=== PATIENT | male | born 1930 | race Caucasian/White ===

== ENCOUNTER 2016-08-30 | Outpatient (CLI) | payer MEDICARE | END 2016-08-30 04:00 | disposition EMS.NT ==

== ENCOUNTER 2016-10-28 09:51 | Outpatient (CLI) | payer MEDICARE | END 2016-10-28 09:52 | disposition home or self-care (01) | DX: G47.33 Obstructive sleep apnea (adult) (pediatric) (principal); G47.31 Primary central sleep apnea | CPT/HCPCS: 99213; G0463 ==

== ENCOUNTER 2016-12-17 13:18 | Outpatient (CLI) | payer MEDICARE | END 2016-12-17 13:19 | disposition home or self-care (01) | DX: G47.33 Obstructive sleep apnea (adult) (pediatric) (principal); G47.31 Primary central sleep apnea | CPT/HCPCS: 99213; G0463 ==

== ENCOUNTER 2017-08-17 10:01 | Emergency (ER) | payer MEDICARE ==
--- NOTE | 2017-08-17 13:20 | XRAY Report ---
EXAM: LEFT HAND RADIOGRAPHY EXAM DATE: 08/17/2017 12:36 PM. CLINICAL HISTORY: Swelling after a fall COMPARISON: None. TECHNIQUE: 3 views. FINDINGS: Bones: There is a 2 mm corticated ossicle adjacent to the PIP joint of the small finger. There is a t iny ossicle adjacent to the DIP joint of the long finger. No acute fractures are evident. Joints: Normal joint alignment. There are small osteophytes at the base of the thumb and the MCP join t of the thumb. Soft Tissues: Dorsal soft tissue swelling is present. Vascular calcifications are present. IMPRESSION: 1. Dorsal soft tissue swelling is present. 2. No acute fractures are appreciated. [facility] Referring Provider Line: [phone] SITE ID: [id number]
--- NOTE | 2017-08-17 13:22 | XRAY Report ---
EXAM: LEFT FOREARM RADIOGRAPHY EXAM DATE: 08/17/2017 12:36 PM. CLINICAL HISTORY: Pain and swelling after a fall COMPARISON: None. TECHNIQUE: 2 views. FINDINGS: Bones: Normal. No fractures or bone lesions. Joints: Normal. No effusions or subluxations in the visualized wrist or elbow joints. Soft Tissues: Normal. No soft tissue swelling. IMPRESSION: Negative left forearm. [facility] Referring Provider Line: [phone] SITE ID: [id number]
--- NOTE | 2017-08-17 13:55 | ED Physician Documentation ---
History of Present Illness - Stated complaint Stated Complaint: GLF/2 WKS HAND SWELLING - Chief complaint Chief Complaint: Ext Problem - Additonal information Additional information: hx from pt 86 male hx stroke on pradaxa fall freq fell two weeks ago onto L side no head or neck injury bruising to L FA and swelling from elbow down, also bruising to L latera thigh no sig pain thigh healing well but arm seems to be more swollen and discolored Review of Systems Constitutional: denies: Fever Cardiac: denies: Chest pain / pressure Respiratory: denies: Dyspnea Musculoskeletal: reports: Extremity swelling Endocrine: reports: Easy bruising / bleeding PD PAST MEDICAL HISTORY - Past Medical History Cardiovascular: Congestive heart failure, Hypertension, Coronary artery disease , Atrial fibrillation Respiratory: Shortness of breath Neuro: None, CVA, TIA Endocrine/Autoimmune: None GI: Ulcers, Pancreatitis : None HEENT: None Psych: None Musculoskeletal: None Derm: None - Past Surgical History Past Surgical History: Yes General: Cholecystectomy, Hiatal hernia repair Cardiovascular: Coronary stent, Pacemaker - Present Medications Home Medications: Ambulatory Orders Medication Instructions Recorded Confirmed Fluticasone Propionate [Flonase 1 spray SINDY QPM 01/14/15 08/17/17 Allergy Relief] Furosemide 20 mg PO DAILY 01/14/15 08/17/17 Lisinopril 20 mg PO DAILY 01/14/15 08/17/17 Potassium Chloride [K-Dur] 20 meq PO BIDWM 01/14/15 08/17/17 Sertraline [Zoloft] 50 mg PO DAILY 01/14/15 08/17/17 amLODIPine [Norvasc] 10 mg PO DAILY 01/14/15 08/17/17 Finasteride 5 mg PO DAILY 06/25/15 08/17/17 Oxybutynin [Ditropan] 5 mg PO 1200 12/26/15 08/17/17 Tamsulosin HCl [Flomax] 0.4 mg PO DAILY 12/26/15 08/17/17 Clopidogrel Bisulfate [Plavix] 75 mg PO DAILY 08/07/16 08/17/17 Dabigatran Etexilate Mesylate 150 mg PO DAILY 08/07/16 08/17/17 [Pradaxa] Nortriptyline [Pamelor] 10 mg PO DAILY 08/17/17 08/17/17 Polyethylene Glycol 3350 [Miralax] 1 packet PO DAILY 08/17/17 08/17/17 - Allergies Allergies/Adverse Reactions: Allergies Allergy/AdvReac Type Severity Reaction Status Date / Time Dspfiaw-Lps-Qtt Reductase AdvReac Dizziness Verified 08/17/17 10:14 Inhibitor - Social History Does the pt smoke?: No Smoking Status: Never smoker Does the pt drink ETOH?: Yes ETOH Use: Wine Does the pt have substance abuse?: No - Immunizations Immunizations are current?: Yes Immunizations: TDAP current <10years - POLST Patient has POLST: Yes PD ED PE NORMAL - Vitals Vital signs reviewed: Yes - HEENT HEENT: Atraumatic - Neck Neck: No bony TTP - Cardiac Cardiac: RRR - Respiratory Respiratory: No respiratory distress, Clear bilaterally - Extremities Extremities: Other (LUE edema and aged bruising to L UE from albow to hand, no focal bony TTP able to range elbow and wrist, strong radial and ulnar pulses, brisk cap refill) - Neuro Neuro: Alert and oriented X 3, No motor deficit, No sensory deficit Results - Vitals Vitals: Vital Signs - 24 hr 08/17/17 08/17/17 10:08 10:58 Temperature 36.3 C L 36.4 C L Heart Rate 60 57 L Respiratory 8 L 20 Rate Blood Pressure 153/80 H 155/95 H O2 Saturation 98 98 Oxygen O2 Source [] Room air O2 Source [] Room air O2 Source Room air - Rads (name of study) L FA and hand Radiology: See rad report (STS no fx) Departure - Departure Disposition: 01 Home, Self Care Clinical Impression: Hematoma Condition: Good Instructions: ED Hematoma Follow-Up: Arnaldo Campos MD [Primary Care Provider] - Comments: The xrays were fine - no bony injury The bruising and swelling are just because he is in the pradaxa. This should gradually improve with time. Applying ice for 20 minutes a few times a day or perhaps wrapping the arm in an GONSALO wrap might help the swelling get better more quickly
[2017-08-17 14:07] VITALS: BP 146/94
== END 2017-08-17 14:16 | disposition home or self-care (01) ==
LOC: ED 10:01
DX: S40.022A Contusion of left upper arm, initial encounter (principal); W19.XXXA Unspecified fall, initial encounter; I11.0 Hypertensive heart disease with heart failure; I50.9 Heart failure, unspecified; I25.10 Atherosclerotic heart disease of native coronary artery without angina pectoris; Z95.0 Presence of cardiac pacemaker; Z95.5 Presence of coronary angioplasty implant and graft; Z86.73 Personal history of transient ischemic attack (TIA), and cerebral infarction without residual deficits; Z79.01 Long term (current) use of anticoagulants
CPT/HCPCS: 99283

== ENCOUNTER 2017-09-12 13:42 | Outpatient (CLI) | payer MEDICARE ==
--- NOTE | 2017-09-12 17:46 | XRAY Report ---
DATE OF SERVICE: 09/12/2017 TWO VIEW CHEST: 09/12/2017 CLINICAL INDICATION: Left pleural effusion, history of chest tube. FINDINGS: Frontal and lateral views of the chest are compared to previous frontal view of 06/25/2015. No more recent chest x-ray is available for comparison. The cardiac silhouette is enlarged. A left subclavian single chamber pacemaker is in stable position. There is a small left effusion present. No pneumothorax is seen. The right lung is clear. Minimal left basilar atelectasis is present. IMPRESSION: SMALL LEFT EFFUSION, WITH MINIMAL LEFT BASILAR ATELECTASIS. TD: 09/12/2017 18:45
== END 2017-09-12 13:43 | disposition home or self-care (01) ==
LOC: DI 13:42
PROVIDERS: ATTEND Physician Assistant
DX: J90 Pleural effusion, not elsewhere classified (principal); J98.11 Atelectasis
CPT/HCPCS: 71046

== ENCOUNTER 2017-10-08 13:23 | Outpatient (CLI) | payer MEDICARE ==
[2017-10-08 14:10] LABS: CALCIUM 8.9 mg/dL (8.5-10.3); CREATININE 1.3 mg/dL (0.6-1.2)
== END 2017-10-08 13:24 | disposition home or self-care (01) ==
LOC: LAB 13:23
PROVIDERS: ATTEND Surgery
DX: R60.9 Edema, unspecified (principal)
CPT/HCPCS: 36415; 80048

== ENCOUNTER 2017-11-20 06:42 | Outpatient (CLI) | payer MEDICARE | END 2017-11-20 06:43 | disposition EMS.NT | LOC: EMS 06:42 | PROVIDERS: ATTEND Surgery | DX: Z03.89 Encounter for observation for other suspected diseases and conditions ruled out (principal) ==

== ENCOUNTER 2017-11-27 19:04 | Inpatient (IN) | payer MEDICARE ==
--- NOTE | 2017-11-27 19:27 | ED Physician Documentation ---
PD HPI DYSPNEA - Stated complaint Stated Complaint: SOA/WHEEZY - Chief complaint Chief Complaint: Resp - History obtained from History obtained from: Patient, Family (daughter) - History of Present Illness Timing - onset: Other (87-year-old gentleman with history of CHF, coronary disease, A. fib, pacemaker, anticoagulated on Pradaxa. He was admitted for CHF with a left pleural effusion status post thoracentesis 2 months ago at [place] and is been very weak ever since which is much worse over the last week with increased shortness of breath and wheezing despite doubling his Lasix from 40- 80 mg 2 days ago. There is no associated chest pain. He is quite edematous.) Review of Systems Ten Systems: 10 systems reviewed and negative Constitutional: denies: Fever, Chills Cardiac: reports: Pedal edema. denies: Chest pain / pressure, Palpitations, Calf pain Respiratory: reports: Dyspnea. denies: Cough GI: denies: Abdominal Pain, Nausea, Vomiting PD PAST MEDICAL HISTORY - Past Medical History Cardiovascular: Congestive heart failure, Hypertension, Coronary artery disease , Atrial fibrillation Respiratory: Shortness of breath Neuro: None, CVA, TIA Endocrine/Autoimmune: None GI: Ulcers, Pancreatitis : None HEENT: None Psych: None Musculoskeletal: None Derm: None - Past Surgical History Past Surgical History: Yes General: Cholecystectomy, Hiatal hernia repair Cardiovascular: Coronary stent, Pacemaker - Present Medications Home Medications: Ambulatory Orders Medication Instructions Recorded Confirmed Furosemide 40 mg PO DAILY 01/14/15 08/17/17 Lisinopril 20 mg PO DAILY 01/14/15 11/27/17 Potassium Chloride [K-Dur] 20 meq PO BIDWM 01/14/15 11/27/17 Sertraline [Zoloft] 50 mg PO DAILY 01/14/15 11/27/17 Finasteride 5 mg PO DAILY 06/25/15 11/27/17 Oxybutynin [Ditropan] 5 mg PO 1200 12/26/15 11/27/17 Tamsulosin HCl [Flomax] 0.4 mg PO DAILY 12/26/15 11/27/17 Nortriptyline [Pamelor] 10 mg PO DAILY 08/17/17 11/27/17 Polyethylene Glycol 3350 [Miralax] 1 packet PO DAILY 08/17/17 11/27/17 Carvedilol 6.25 mg PO BID 11/27/17 11/27/17 - Allergies Allergies/Adverse Reactions: Allergies Allergy/AdvReac Type Severity Reaction Status Date / Time Pamoozf-Aek-Lcb Reductase AdvReac Dizziness Verified 08/17/17 10:14 Inhibitor - Social History Does the pt smoke?: No Smoking Status: Never smoker Does the pt drink ETOH?: Yes Does the pt have substance abuse?: No - Family History Family history: reports: Non contributory - Immunizations Immunizations are current?: Yes Immunizations: TDAP current <10years - POLST Patient has POLST: Yes PD ED PE NORMAL - Vitals Vital signs reviewed: Yes - General General: Alert and oriented X 3, Other (He is very weak, 2 person assist to sit him up, he is audibly wheezy and slightly labored.) - HEENT HEENT: PERRL, EOMI - Neck Neck: Supple, no meningeal sign, No bony TTP - Cardiac Cardiac: Other (Regular, no murmur) - Respiratory Respiratory: Other (Slightly labored, speaking in short sentences, diminished at the left base with mild wheezes throughout.) - Abdomen Abdomen: Soft, Non tender - Back Back: No CVA TTP, No spinal TTP - Derm Derm: Normal color, Warm and dry - Extremities Extremities: No deformity, No tenderness to palpate, Other (Pitting pedal edema up to the thighs) - Neuro Neuro: Alert and oriented X 3, Normal speech Results - Vitals Vitals: Vital Signs - 24 hr 11/27/17 19:10 Temperature 36.6 C Heart Rate 60 Respiratory 16 Rate Blood Pressure 185/105 H O2 Saturation 93 Oxygen O2 Source [] Room air O2 Source [] Room air O2 Source Room air - EKG (time done) 1913 Rate: Rate (enter#) (62) Rhythm: Atrial fibrillation Intervals: RBBB Ischemia: Q waves (Anterolateral) Compare to prior EKG: Changed from prior EKG (No significant change from December.) Computer interpretation: Agree with computer - Labs Labs: Laboratory Tests 11/27/17 11/27/17 11/27/17 19:15 19:15 19:15 WBC 5.8 RBC 4.40 L Hgb 13.8 L Hct 41.9 L MCV 95.1 H MCH 31.3 H MCHC 32.9 RDW 16.4 H Plt Count 103 L MPV 9.5 Neut # 3.8 Lymph # 0.9 L [place] # 0.4 Eos # 0.7 Baso # 0.0 Absolute Nucleated RBC 0.00 Nucleated RBC % 0.0 PT INR APTT Sodium 138 Potassium 3.9 Chloride 102 Carbon Dioxide 30 Anion Gap 6.0 BUN 20 Creatinine 1.4 H Estimated GFR (MDRD) 48 L Glucose 143 H Calcium 9.0 Total Bilirubin 1.3 H AST 30 ALT 18 Alkaline Phosphatase 114 Troponin I 0.04 B-Natriuretic Peptide Total Protein 7.1 Albumin 3.9 Globulin 3.2 Albumin/Globulin Ratio 1.2 Lipase 20 L 11/27/17 11/27/17 19:42 19:42 WBC RBC Hgb Hct MCV MCH MCHC RDW Plt Count MPV Neut # Lymph # [place] # Eos # Baso # Absolute Nucleated RBC Nucleated RBC % PT 30.4 H INR 2.8 H APTT 93.2 H* Sodium Potassium Chloride Carbon Dioxide Anion Gap BUN Creatinine Estimated GFR (MDRD) Glucose Calcium Total Bilirubin AST ALT Alkaline Phosphatase Troponin I B-Natriuretic Peptide 1629 H Total Protein Albumin Globulin Albumin/Globulin Ratio Lipase PD MEDICAL DECISION MAKING - ED course ED course: 87-year-old gentleman with CHF, coronary disease, atrial fibrillation on warfarin presents with an acute decompensation over the last week with profoundly symptomatic shortness of breath due to CHF clinically, class IV. He was administered Nitropaste and IV Lasix. His INR is therapeutic and his other diagnostics are consistent with the diagnosis of CHF. Spoke with Dr Jonas for admission at 8:25 PM. Departure - Departure Disposition: [address] [facility] DC/Xfer Clinical Impression: CHF (congestive heart failure), NYHA class IV Qualifiers: Congestive heart failure type: unspecified Qualified Code(s): I50.9 - Heart failure, unspecified Afib Qualifiers: Atrial fibrillation type: chronic Qualified Code(s): I48.2 - Chronic atrial fibrillation Condition: Serious
[2017-11-27 19:30] LABS: BASOPHILS % (AUTO) 0.5 %; EOSINOPHILS # (AUTO) 0.7 10^3/uL (0.0-0.7); EOSINOPHILS % (AUTO) 12.2 %; HGB - HEMOGLOBIN 13.8 g/dL (14.0-18.0); LYMPHOCYTES # (AUTO) 0.9 10^3/uL (1.5-3.5); LYMPHOCYTES % (AUTO) 15.3 %; MEAN CORPUSCULAR HEMOGLOBIN 31.3 pg (27.0-31.0); MEAN CORPUSCULAR HGB CONC 32.9 g/dL (32.0-36.0); MEAN CORPUSCULAR VOLUME 95.1 fL (80.0-94.0); MEAN PLATELET VOLUME 9.5 fL (7.4-11.4); MONOCYTES # (AUTO) 0.4 10^3/uL (0.0-1.0); MONOCYTES % (AUTO) 6.5 %; NEUTROPHILS # (AUTO) 3.8 10^3/uL (1.5-6.6); NEUTROPHILS % (AUTO) 65.5 %; PLT - PLATELET COUNT 103 10^3/uL (130-450); RED CELL DISTRIBUTION WIDTH 16.4 % (12.0-15.0); WHITE BLOOD COUNT 5.8 x10^3/uL (4.8-10.8)
[2017-11-27 19:43] LABS: ALBUMIN 3.9 g/dL (3.2-5.5); ALBUMIN/GLOBULIN RATIO 1.2 (1.0-2.2); BILIRUBIN,TOTAL 1.3 mg/dL (0.2-1.0); CREATININE 1.4 mg/dL (0.6-1.2); TOTAL PROTEIN 7.1 g/dL (6.7-8.2)
[2017-11-27 20:02] LABS: INR 2.8 (0.8-1.2); PT - PROTHROMBIN TIME 30.4 secs (9.9-12.6)
--- NOTE | 2017-11-27 20:04 | XRAY Preliminary Report ---
Exam: XR CHEST 1 VIEW X-RAY IMPRESSION: 1. Lower lung volumes. 2. Increased interstitial markings are probably physiologic related to lower lung volume, however dev eloping mild pulmonary vascular congestion is not excluded. 3. Left pleural thickening or small effusion unchanged. [facility] SITE ID: [id number]
--- NOTE | 2017-11-27 20:05 | XRAY Report ---
EXAM: CHEST RADIOGRAPHY EXAM DATE: 11/27/2017 07:44 PM. CLINICAL HISTORY: Dyspnea. COMPARISON: 09/12/2017. TECHNIQUE: 1 view. FINDINGS: Lungs/Pleura: Lung volumes have decreased. There are bilateral interstitial densities which appear mi ldly increased. There is blunting the left costophrenic angle which is unchanged. Mediastinum: Cardiac silhouette is enlarged but unchanged. There is a pacemaker lead overlying the le ft ventricle. There is aortic arch atherosclerotic calcification. Other: None. IMPRESSION: 1. Lower lung volumes. 2. Increased interstitial markings are probably physiologic related to lower lung volume, however dev eloping mild pulmonary vascular congestion is not excluded. 3. Left pleural thickening or small effusion unchanged. [facility] Referring Provider Line: [phone] SITE ID: [id number]
[2017-11-27] MEDS ORDERED: FUROSEMIDE 100 MG/10 ML VIAL IVP STA (20:16)
[2017-11-27] MEDS ORDERED: NITROGLYCERIN 2% PASTE TOP STA (20:16)
[2017-11-27] MEDS ORDERED: FUROSEMIDE 40 MG/4 ML VIAL ONE (20:29)
[2017-11-27] MEDS ORDERED: NITROGLYCERIN 2% PASTE TOP ONE (20:39)
[2017-11-27] MEDS ORDERED: ACETAMINOPHEN 325 MG TABLET PO PRN (21:15)
[2017-11-27] MEDS ORDERED: ONDANSETRON 4 MG/2 ML VIAL IVP PRN (21:15)
[2017-11-27] MEDS ORDERED: MORPHINE 2 MG/ML SYRINGE IVP PRN ×2 (21:15→21:25)
[2017-11-27] MEDS ORDERED: TEMAZEPAM 15 MG CAPSULE PO PRN (21:15)
[2017-11-27] MEDS: CARVEDILOL 3.125 MG TABLET PO SCH (23:15)
[2017-11-28] MEDS: SODIUM CHLORIDE FLUSH 0.9% 10 ML SYRINGE IVP PRN ×2 (00:14→06:56)
[2017-11-28] MEDS ORDERED: NITROGLYCERIN 2% PASTE TOP SCH (00:30)
--- NOTE | 2017-11-28 01:23 | HISTORY & PHYSICAL EXAMINATION ---
DATE OF SERVICE: 11/27/2017 Physician: Shannan Olivares MD HISTORY OF PRESENT ILLNESS: This is an 87-year-old white male with a history of chronic atrial fibrillation on Pradaxa, congestive heart failure (unknown if this is systolic or diastolic as he has had no Echos at this facility), history of coronary artery disease with stenting, history of permanent pacemaker placed 4 years ago, history of sleep apnea on BiPAP with 3 liters at home, history of a stroke with left-sided weakness and slight speech abnormality , admitted to [facility] approximately 2 months ago with fluid overload and required left -sided chest thoracentesis. The patient has been home for about 6 weeks and was better with his breathing and fluid retention for about the first 3 weeks and then started having intermittent worsening edema. The daughter knew to adjust his Lasix doses up, but over the past 1 week , he has had progressive edema despite higher Lasix doses and then developed wheezing and shortness of breath at rest. He presented to the emergency room with these complaints today. There has been no chest pain. He is compliant with his medications. PAST MEDICAL HISTORY 1. CAD with stent. 2. Chronic atrial fibrillation on Pradaxa. 3. Pacemaker (97% pacer dependent according to the daughter). 4. Hypertension. 5. CKD. 6. Sleep apnea. 7. Stroke with left-sided weakness and speech problems. REVIEW OF SYSTEMS: Over the past 2 months, the patient has had progressive weakness and especially after having home physical therapy after his stroke and even after the hospitalization 2 months ago. The daughter states that after every home PT, he would simply be so weak that his legs were as "weak as noodles." There has been no recent cough, fever, GI symptoms. Comprehensive review of systems was performed and the pertinent positives are as above. FAMILY HISTORY: No known inherited diseases. SOCIAL HISTORY: The patient stopped smoking 40 years ago, drinks alcohol socially. No other illicit drug use. The patient lives independently in a [id number] with his daughter living next door. He has 24-hour care with helpers plus the daughter. The patient is able to toilet himself but otherwise needs help with showering. He can feed himself, but his meals, laundry and cleaning are done by others. The patient is a [employer]. ALLERGIES: STATINS. MEDICATIONS AT HOME 1. Carvedilol 6.25 b.i.d. 2. Lisinopril 40 mg daily. 3. Pradaxa 150 mg p.o. b.i.d. 4. Lasix 80 mg p.o. daily, which was recently increased from 40 mg daily. 5. Finasteride 5 mg daily. 6. Pamelor 10 mg daily. 7. Oxybutynin 5 mg daily. 8. MiraLax packet daily. 9. Potassium 20 mEq b.i.d. 10. Zoloft 50 mg daily. 11. Tamsulosin 0.4 mg daily. PHYSICAL EXAMINATION GENERAL: Elderly white male. He is nearly supine in bed and no longer wheezing as he was in the emergency room. VITAL SIGNS: Blood pressure 184/95. Pulse is 60 and paced. He is afebrile. Room air saturation 96%. HEENT: Reveals a dry mouth and poor dentition. NECK: Positive JVD and positive HJR. No carotid bruits. The neck is supple. CHEST: Diminished breath sounds at the right base and a scattered wheeze anteriorly. HEART: Heart sounds are distant. No audible murmurs. ABDOMEN: Soft, nontender. No organomegaly. EXTREMITIES: 4+ edema to the hips. There is no clubbing or cyanosis. NEUROLOGIC: Left side had minimal weakness compared to the right, and his speech has slight slurring. DIAGNOSTIC DATA: Labs: Normal electrolytes. BUN is 20, creatinine 1.4. Troponin is 0.04. BNP 1629. White blood count 5.8, hemoglobin 13.8, MCV 95. INR is 2.8 but this is not reliable in a patient on Pradaxa. Chest x-ray: Cephalization of flow and small left pleural effusion. EKG: Atrial fibrillation and probable pacing versus indeterminate bundle branch block. IMPRESSION/DIAGNOSES 1. Congestive heart failure exacerbation (it is unclear if this is systolic or diastolic). 2. Chronic kidney disease. 3. Hypertension. 4. Permanent atrial fibrillation, on Pradaxa and with a pacemaker for backup. 5. Sleep apnea, on BiPAP at home. 6. History of CVA. 7. History of coronary artery disease with stents. ASSESSMENT AND PLAN: Admit the patient. Place him on telemetry. Begin IV diuretics. Watch his I's and O's and daily weights. Limit salt in his diet, and this was discussed with the patient and his daughter, the caregiver, as he was not on a salt-restricted diet. Continue his cardiac medications. Obtain an Echo to evaluate LV and RV contractility. Cycle his troponins to assure this is not an acute HI that is causing the CHF exacerbation. Continue with his home CPAP. Continue with his home BPH and anxiolytic/depression medications. DEEP VENOUS THROMBOSIS PROPHYLAXIS: The patient is therapeutic on his oral anticoagulant. CODE STATUS: [id number] (was confirmed verbally and a POLST was seen). ATTESTATION: The patient is expected to be discharged or transferred to another facility within 96 hours: Yes. TD: 11/28/2017 01:22 AVRIL
[2017-11-28] MEDS: SODIUM CHLORIDE FLUSH 0.9% 10 ML SYRINGE IVP SCH ×3 (01:34→17:16)
[2017-11-28 05:13] LABS: CALCIUM 8.8 mg/dL (8.5-10.3); CREATININE 1.3 mg/dL (0.6-1.2); MAGNESIUM 2.2 mg/dL (1.7-2.8)
[2017-11-28] MEDS: NITROGLYCERIN 2% PASTE TOP SCH ×2 (05:37→12:17)
[2017-11-28] MEDS ORDERED: POTASSIUM CHLORIDE 20 MEQ TABLET PO SCH (08:00)
[2017-11-28] MEDS ORDERED: POLYETHYLENE GLYCOL 3350 17 GM PACKET PO SCH (09:00)
[2017-11-28] MEDS ORDERED: DABIGATRAN 75 MG CAPSULE PO SCH (09:00)
[2017-11-28] MEDS ORDERED: FUROSEMIDE 40 MG/4 ML VIAL IVP SCH (09:00)
[2017-11-28] MEDS ORDERED: LISINOPRIL 20 MG TABLET PO SCH (09:00)
[2017-11-28] MEDS: POLYETHYLENE GLYCOL 3350 17 GM PACKET PO SCH (09:14)
[2017-11-28] MEDS: CARVEDILOL 3.125 MG TABLET PO SCH ×2 (09:15→20:43)
[2017-11-28] MEDS: DABIGATRAN 75 MG CAPSULE PO SCH ×2 (09:15→20:42)
[2017-11-28] MEDS: FAMOTIDINE 20 MG TABLET PO SCH (09:15)
[2017-11-28] MEDS: FINASTERIDE 5 MG TABLET PO SCH (09:15)
[2017-11-28] MEDS: NORTRIPTYLINE 10 MG CAPSULE PO SCH (09:15)
[2017-11-28] MEDS: TAMSULOSIN 0.4 MG CAPSULE PO SCH (09:15)
[2017-11-28] MEDS: SERTRALINE 50 MG TABLET PO SCH (09:15)
[2017-11-28] MEDS: FUROSEMIDE 40 MG/4 ML VIAL IVP SCH ×2 (09:18→14:40)
[2017-11-28] MEDS: OXYBUTYNIN 5MG TABLET PO SCH (12:17)
--- NOTE | 2017-11-28 13:29 | PROVIDER PROGRESS NOTE ---
Assessment/Plan - Problem List (1) CHF (congestive heart failure), NYHA class IV Qualifiers: Congestive heart failure type: combined Congestive heart failure chronicity : acute on chronic Qualified Code(s): I50.43 - Acute on chronic combined systolic (congestive) and diastolic (congestive) heart failure Assessment/Plan: Patient suffers from both systolic and diastolic heart failure and had an updated echocardiogram today which shows a worsening aortic stenosis as compared to a previous echo dated 2015. Patient was given a el catheter in anticipation of diuresis and for comfort. Patient continues to have pitting edema that can be appreciated to BLE groin level. Anticipate 2-3 days for continued diuresis, using lasix IV 80mg BID and Spironolactone was added today ( Potassium stopped). Plan: Continue aggressive diuresis and monitor labs (while being mindful of kidney compromise). (2) Cerebrovascular accident (CVA) Assessment/Plan: The patient has a known history of this and has residual deficits of mild cognitive impairment, delayed speech and mild right sided weakness with ongoing numbness and tingling. Plan: PT evaluation and follow family wishes to provide the best, most appropriate care and to prevent falls. (3) Hypertension Qualifiers: Hypertension type: essential hypertension Qualified Code(s): I10 - Essential (primary) hypertension Assessment/Plan: Patient has a history of this and according to his sample carrier/daughter, he was previously prescribed Norvasc, but this was recently discontinued due to the patient having controlled B/Ps. He takes lisinopril, lasix, and Coreg. Blood pressures throughout today have been too high and remain in the 180's over 90' s. Patient developed a headache from the topical nitro paste, so this was discontinued. Plan: Continue current home medications, added norvasc and scheduled hydralazine IV scheduled until B/P becomes better controlled. (4) Aortic stenosis, moderate Assessment/Plan: Patient has a history of aortic stenosis as per echo performed on December 2015, that is worsened today according an echocardiogarm. This is now in the moderate range of severity. Plan: Monitor symptoms and treat heart failure. - Current Meds Current Meds: Current Medications Generic Name Dose Route Start Last Admin Trade Name Freq PRN Reason Stop Dose Admin Carvedilol 6.25 mg 11/27/17 22:00 11/28/17 09:15 Coreg PO 6.25 mg BID KEY Administration Dabigatran 150 mg 11/28/17 09:00 11/28/17 09:15 Pradaxa PO 150 mg BID KEY Administration Famotidine 20 mg 11/28/17 09:00 11/28/17 09:15 Pepcid PO 20 mg DAILY KEY Administration Finasteride 5 mg 11/28/17 09:00 11/28/17 09:15 Proscar PO 5 mg DAILY KEY Administration Furosemide 80 mg 11/28/17 07:30 11/28/17 09:18 Lasix Inj 40 Mg Vial IVP 80 mg BIDDIURETIC KEY Administration Lisinopril 20 mg 11/28/17 09:00 11/28/17 09:15 Zestril PO 20 mg DAILY KEY Administration Morphine Sulfate 2 mg 11/27/17 21:25 11/28/17 06:58 Morphine IVP 1 mg Q2H PRN Administration Dyspnea Nitroglycerin 1 inch 11/28/17 05:00 11/28/17 12:17 Nitro-Bid (Pkt) TOP 1 inch Q8H KEY Administration Nortriptyline HCl 10 mg 11/28/17 09:00 11/28/17 09:15 Pamelor PO 10 mg DAILY KEY Administration Ondansetron HCl 4 mg 11/27/17 21:15 11/28/17 06:56 Zofran Inj IVP 4 mg Q6HR PRN Administration Nausea / Vomiting Oxybutynin Chloride 5 mg 11/28/17 12:00 11/28/17 12:17 Ditropan PO 5 mg 1200 KEY Administration Polyethylene Glycol 17 gm 11/28/17 09:00 11/28/17 09:14 Miralax PO 17 gm DAILY KEY Administration Potassium Chloride 20 meq 11/28/17 08:00 11/28/17 09:15 K-Dur PO 20 meq BIDWM KEY Administration Sertraline HCl 50 mg 11/28/17 09:00 11/28/17 09:15 Zoloft PO 50 mg DAILY KEY Administration Sodium Chloride 10 ml 11/27/17 21:15 11/28/17 06:56 Normal Saline Flush 0.9% IVP 20 ml PRN PRN Administration NEEDED PER PROVIDER ORDERS Sodium Chloride 10 ml 11/28/17 01:00 11/28/17 09:14 Normal Saline Flush 0.9% IVP 10 ml 0100,0900,1700 KEY Administration Tamsulosin HCl 0.4 mg 11/28/17 09:00 11/28/17 09:15 Flomax PO 0.4 mg DAILY KEY Administration - Lab Result Lab results reviewed: Yes Fish Bone Diagrams: 11/27/17 19:15 11/28/17 04:52 - EKG Results EKG Interpreted Independently: Yes EKG Comparison: Unchanged from prior EKG - Diagnostic Imaging Results Diagnostic Imaging Results: Prelim report reviewed, Final report reviewed - Additional Planning Condition/Complexity: Stable My Orders: My Active Orders 11/28/17 07:30 FUROSEMIDE INJ 40mg VIAL [LASIX INJ 40 mg VIAL] 80 mg IVP BIDDIURETIC 11/28/17 13:00 amLODIPine [Norvasc] 5 mg PO DAILY Plan Discussed with:: Patient, Family, Power of Utilization Review Coordinator Time Spent: 31-60 minutes Subjective - Subjective Patient Reports: Fatigue, Shortness of Breath Nursing Reports: Shortness of Breath Objective Vital Signs: Vital Signs - 24 hr 11/27/17 11/27/17 11/27/17 21:57 22:11 23:26 Temperature 36.4 C L 36.4 C L Heart Rate 60 Heart Rate [ 98 60 Brachial] Respiratory 19 22 20 Rate Blood Pressure 184/98 H Blood Pressure 194/104 H 184/95 H [Right Brachial artery] O2 Saturation 97 97 96 11/28/17 11/28/17 05:19 08:00 Temperature 36.4 C L 36.7 C Heart Rate Heart Rate [ 60 60 Brachial] Respiratory 20 18 Rate Blood Pressure Blood Pressure 191/99 H 187/93 H [Right Brachial artery] O2 Saturation 95 92 Oxygen O2 Source Room air I&O (Last 24 Hrs): Intake and Output Totals x24h 11/26/17 11/27/17 11/28/17 23:59 23:59 23:59 Intake Total 100 600 Output Total 2100 3700 Balance -2000 -3100 General: Alert, Oriented x3, No acute distress HEENT: Atraumatic, PERRLA Neck: Supple Lymphatic: no adenopathy Neuro: Alert, Speech Slurred (baseline since CVA, right U & L extremity weakness /N/T.), Oriented Times 3 Cardiovascular: Regular rate, Gallops (systolic/diastolic murmurs.) Respiratory: Chest non-tender, No respiratory distress, Wheezes, Rhonchi (left lower lobe worse than right.) Extremities: No clubbing, Other (anasarca up to ~hip area bilaterally.) Skin: No rashes, No significant lesion Comments/Notes: intermittent tailbone/ishial skin breakdown as per daughter who is primary critical care cns. - Results Results: Laboratory Results WBC 5.8 x10^3/uL (4.8-10.8) 11/27/17 19:15 RBC 4.40 10^6/uL (4.70-6.10) L 11/27/17 19:15 Hgb 13.8 g/dL (14.0-18.0) L 11/27/17 19:15 Hct 41.9 % (42.0-52.0) L 11/27/17 19:15 MCV 95.1 fL (80.0-94.0) H 11/27/17 19:15 MCH 31.3 pg (27.0-31.0) H 11/27/17 19:15 MCHC 32.9 g/dL (32.0-36.0) 11/27/17 19:15 RDW 16.4 % (12.0-15.0) H 11/27/17 19:15 Plt Count 103 10^3/uL (130-450) L 11/27/17 19:15 MPV 9.5 fL (7.4-11.4) 11/27/17 19:15 Neut # 3.8 10^3/uL (1.5-6.6) 11/27/17 19:15 Lymph # 0.9 10^3/uL (1.5-3.5) L 11/27/17 19:15 [place] # 0.4 10^3/uL (0.0-1.0) 11/27/17 19:15 Eos # 0.7 10^3/uL (0.0-0.7) 11/27/17 19:15 Baso # 0.0 10^3/uL (0.0-0.1) 11/27/17 19:15 Absolute Nucleated RBC 0.00 x10^3/uL 11/27/17 19:15 Nucleated RBC % 0.0 /100WBC 11/27/17 19:15 PT 30.4 secs (9.9-12.6) H 11/27/17 19:42 INR 2.8 (0.8-1.2) H 11/27/17 19:42 APTT 93.2 secs (24.9-33.3) H* 11/27/17 19:42 Sodium 141 mmol/L (135-145) 11/28/17 04:52 Potassium 3.0 mmol/L (3.5-5.0) L 11/28/17 04:52 Chloride 103 mmol/L (101-111) 11/28/17 04:52 Carbon Dioxide 30 mmol/L (21-32) 11/28/17 04:52 Anion Gap 8.0 (6-13) 11/28/17 04:52 BUN 21 mg/dL (6-20) H 11/28/17 04:52 Creatinine 1.3 mg/dL (0.6-1.2) H 11/28/17 04:52 Estimated GFR (MDRD) 52 (>89) L 11/28/17 04:52 Glucose 115 mg/dL (70-100) H 11/28/17 04:52 Calcium 8.8 mg/dL (8.5-10.3) 11/28/17 04:52 Magnesium 2.2 mg/dL (1.7-2.8) 11/28/17 04:52 Total Bilirubin 1.3 mg/dL (0.2-1.0) H 11/27/17 19:15 AST 30 IU/L (10-42) 11/27/17 19:15 ALT 18 IU/L (10-60) 11/27/17 19:15 Alkaline Phosphatase 114 IU/L (42-121) 11/27/17 19:15 Troponin I 0.04 ng/mL (<0.49) 11/28/17 04:52 B-Natriuretic Peptide 1629 pg/mL (5-100) H 11/27/17 19:42 Total Protein 7.1 g/dL (6.7-8.2) 11/27/17 19:15 Albumin 3.9 g/dL (3.2-5.5) 11/27/17 19:15 Globulin 3.2 g/dL (2.1-4.2) 11/27/17 19:15 Albumin/Globulin Ratio 1.2 (1.0-2.2) 11/27/17 19:15 Lipase 20 U/L (22-51) L 11/27/17 19:15
[2017-11-28] MEDS: amLODIPine 5 MG TABLET PO SCH (14:40)
[2017-11-28] MEDS ORDERED: SPIRONOLACTONE 25 MG TABLET PO SCH (17:00)
[2017-11-28] MEDS: SPIRONOLACTONE 25 MG TABLET PO SCH (17:14)
[2017-11-28] MEDS: hydrALAZINE INJ 20 MG/ML VIAL IVP SCH ×2 (17:14→22:51)
[2017-11-28] MEDS: POTASSIUM CHLOR 10 MEQ/100 ML 10 MEQ/100 ML BAG IV SCH ×2 (20:42→23:29)
[2017-11-28] MEDS: IBUPROFEN 600 MG TABLET PO SCH (20:43)
[2017-11-29] MEDS: SODIUM CHLORIDE FLUSH 0.9% 10 ML SYRINGE IVP SCH ×3 (01:52→16:53)
[2017-11-29] MEDS: POTASSIUM CHLOR 10 MEQ/100 ML 10 MEQ/100 ML BAG IV SCH (02:32)
[2017-11-29 05:23] LABS: BASOPHILS # (AUTO) 0.1 10^3/uL (0.0-0.1); EOSINOPHILS # (AUTO) 0.3 10^3/uL (0.0-0.7); EOSINOPHILS % (AUTO) 5.3 %; HGB - HEMOGLOBIN 12.6 g/dL (14.0-18.0); LYMPHOCYTES # (AUTO) 0.9 10^3/uL (1.5-3.5); MEAN CORPUSCULAR HEMOGLOBIN 31.4 pg (27.0-31.0); MEAN CORPUSCULAR HGB CONC 32.9 g/dL (32.0-36.0); MEAN CORPUSCULAR VOLUME 95.3 fL (80.0-94.0); MEAN PLATELET VOLUME 9.2 fL (7.4-11.4); MONOCYTES # (AUTO) 0.4 10^3/uL (0.0-1.0); MONOCYTES % (AUTO) 7.5 %; NEUTROPHILS # (AUTO) 3.8 10^3/uL (1.5-6.6); NEUTROPHILS % (AUTO) 70.2 %; PLT - PLATELET COUNT 94 10^3/uL (130-450); RED BLOOD COUNT 4.02 10^6/uL (4.70-6.10); RED CELL DISTRIBUTION WIDTH 16.7 % (12.0-15.0); WHITE BLOOD COUNT 5.4 x10^3/uL (4.8-10.8)
[2017-11-29 05:33] LABS: ALBUMIN 3.4 g/dL (3.2-5.5); ALBUMIN/GLOBULIN RATIO 1.4 (1.0-2.2); BILIRUBIN,TOTAL 1.7 mg/dL (0.2-1.0); CALCIUM 8.5 mg/dL (8.5-10.3); CREATININE 1.3 mg/dL (0.6-1.2); MAGNESIUM 1.9 mg/dL (1.7-2.8); TOTAL PROTEIN 5.9 g/dL (6.7-8.2)
[2017-11-29] MEDS: hydrALAZINE INJ 20 MG/ML VIAL IVP SCH ×4 (06:05→22:15)
[2017-11-29] MEDS: SODIUM CHLORIDE FLUSH 0.9% 10 ML SYRINGE IVP PRN ×3 (06:05→22:16)
[2017-11-29] MEDS: FUROSEMIDE 40 MG/4 ML VIAL IVP SCH ×2 (06:21→13:19)
--- NOTE | 2017-11-29 08:24 | PROVIDER PROGRESS NOTE ---
Assessment/Plan - Problem List (1) CHF (congestive heart failure), NYHA class IV Qualifiers: Congestive heart failure type: combined Congestive heart failure chronicity : acute on chronic Qualified Code(s): I50.43 - Acute on chronic combined systolic (congestive) and diastolic (congestive) heart failure Assessment/Plan: Patient suffers from both systolic and diastolic heart failure and had an updated echocardiogram today which shows a worsening aortic stenosis as compared to a previous echo dated 2015. Patient was given a el catheter in anticipation of diuresis and for comfort. Patient continues to have pitting edema that can be appreciated to BLE groin level. Anticipate 2-3 days for continued diuresis, using lasix IV 80mg BID and Spironolactone was added today ( Potassium stopped). Plan: Continue aggressive diuresis and monitor labs (while being mindful of kidney compromise), urine output and daily weights. (2) Cerebrovascular accident (CVA) Assessment/Plan: The patient has a known history of this and has residual deficits of mild cognitive impairment, delayed speech and mild right sided weakness with ongoing numbness and tingling. Plan: PT evaluation and follow family wishes to provide the best, most appropriate care and to prevent falls. (3) Hypertension Qualifiers: Hypertension type: essential hypertension Qualified Code(s): I10 - Essential (primary) hypertension Assessment/Plan: Patient has a history of this and according to his auto body repair teacher/daughter, he was previously prescribed Norvasc, but this was recently discontinued due to the patient having controlled B/Ps. He takes lisinopril, lasix, and Coreg. Blood pressures throughout today have been much improved with SBP ~130. Patient developed a headache from the topical nitro paste, so this was discontinued. Plan: Continue current home medications, added norvasc and scheduled hydralazine IV scheduled until B/P becomes better controlled. (4) Aortic stenosis, moderate Assessment/Plan: Patient has a history of aortic stenosis as per echo performed on December 2015, that is worsened today according an echocardiogarm. This is now in the moderate range of severity. Continue beta jaja to prevent episodes of tachycardia as this is detrimental for this condition. Plan: Monitor symptoms and treat heart failure. - Current Meds Current Meds: Current Medications Generic Name Dose Route Start Last Admin Trade Name Freq PRN Reason Stop Dose Admin Acetaminophen 650 mg 11/27/17 21:15 11/28/17 14:59 Tylenol PO 650 mg Q4HR PRN Administration Pain or Fever > 38C (100.4F) Amlodipine Besylate 5 mg 11/28/17 13:00 11/28/17 14:40 Norvasc PO 5 mg DAILY KEY Administration Carvedilol 6.25 mg 11/27/17 22:00 11/28/17 20:43 Coreg PO 6.25 mg BID KEY Administration Dabigatran 150 mg 11/28/17 09:00 11/28/17 20:42 Pradaxa PO 150 mg BID KEY Administration Famotidine 20 mg 11/28/17 09:00 11/28/17 09:15 Pepcid PO 20 mg DAILY KEY Administration Finasteride 5 mg 11/28/17 09:00 11/28/17 09:15 Proscar PO 5 mg DAILY KEY Administration Furosemide 80 mg 11/28/17 07:30 11/29/17 06:21 Lasix Inj 40 Mg Vial IVP 80 mg BIDDIURETIC KEY Administration Hydralazine HCl 10 mg 11/28/17 17:00 11/29/17 06:05 Apresoline Inj IVP 10 mg Q6H KEY Administration Ibuprofen 600 mg 11/28/17 21:00 11/28/17 20:43 Motrin PO 600 mg QPM KEY Administration Morphine Sulfate 2 mg 11/27/17 21:25 11/28/17 06:58 Morphine IVP 1 mg Q2H PRN Administration Dyspnea Nortriptyline HCl 10 mg 11/28/17 09:00 11/28/17 09:15 Pamelor PO 10 mg DAILY KEY Administration Ondansetron HCl 4 mg 11/27/17 21:15 11/28/17 06:56 Zofran Inj IVP 4 mg Q6HR PRN Administration Nausea / Vomiting Oxybutynin Chloride 5 mg 11/28/17 12:00 11/28/17 12:17 Ditropan PO 5 mg 1200 KEY Administration Polyethylene Glycol 17 gm 11/28/17 09:00 11/28/17 09:14 Miralax PO 17 gm DAILY KEY Administration Sertraline HCl 50 mg 11/28/17 09:00 11/28/17 09:15 Zoloft PO 50 mg DAILY KEY Administration Sodium Chloride 10 ml 11/27/17 21:15 11/29/17 06:21 Normal Saline Flush 0.9% IVP 10 ml PRN PRN Administration NEEDED PER PROVIDER ORDERS Sodium Chloride 10 ml 11/28/17 01:00 11/29/17 01:52 Normal Saline Flush 0.9% IVP Not Given 0100,0900,1700 KEY Spironolactone 25 mg 11/28/17 17:00 11/28/17 17:14 Aldactone PO 25 mg DAILY KEY Administration Tamsulosin HCl 0.4 mg 11/28/17 09:00 11/28/17 09:15 Flomax PO 0.4 mg DAILY KEY Administration - Lab Result Lab results reviewed: Yes Fish Bone Diagrams: 11/29/17 05:09 11/29/17 05:09 - EKG Results EKG Interpreted Independently: Yes - Diagnostic Imaging Results Diagnostic Imaging Results: Prelim report reviewed, Final report reviewed - Additional Planning Condition/Complexity: Stable My Orders: My Active Orders 11/28/17 07:30 FUROSEMIDE INJ 40mg VIAL [LASIX INJ 40 mg VIAL] 80 mg IVP BIDDIURETIC 11/28/17 13:00 amLODIPine [Norvasc] 5 mg PO DAILY 11/28/17 17:00 Spironolactone [Aldactone] 25 mg PO DAILY hydrALAZINE INJ [Apresoline Inj] 10 mg IVP Q6H 11/28/17 21:00 Ibuprofen [Motrin] 600 mg PO QPM 11/30/17 05:00 CBC - COMP BLD CT W/AUTO DIFF [HEME] DAILYLAB COMPREHENSIVE METABOLIC PANEL [CHEM] DAILYLAB MAGNESIUM [CHEM] DAILYLAB 12/01/17 05:00 CBC - COMP BLD CT W/AUTO DIFF [HEME] DAILYLAB COMPREHENSIVE METABOLIC PANEL [CHEM] DAILYLAB MAGNESIUM [CHEM] DAILYLAB Plan Discussed with:: Patient, Family, Power of [employer] Time Spent: 15-30 minutes (chf,) Objective Vital Signs: Vital Signs - 24 hr 11/28/17 11/28/17 11/28/17 14:00 14:42 15:19 Temperature 36.5 C Heart Rate [ 60 Brachial] Respiratory 20 18 Rate Blood Pressure Blood Pressure [Left Brachial artery] Blood Pressure 153/90 H 180/108 H 180/98 H [Right Brachial artery] O2 Saturation 94 11/28/17 11/28/17 11/28/17 17:14 17:30 19:55 Temperature Heart Rate [ Brachial] Respiratory Rate Blood Pressure 185/97 H Blood Pressure 180/98 H [Left Brachial artery] Blood Pressure 169/102 H 182/97 H [Right Brachial artery] O2 Saturation 11/28/17 11/29/17 11/29/17 22:51 00:00 06:07 Temperature 36.5 C Heart Rate [ 60 65 Brachial] Respiratory 18 16 Rate Blood Pressure 174/88 H Blood Pressure 143/75 H [Left Brachial artery] Blood Pressure 148/80 H [Right Brachial artery] O2 Saturation 95 98 11/29/17 11/29/17 06:18 06:29 Temperature Heart Rate [ 61 60 Brachial] Respiratory Rate Blood Pressure Blood Pressure [Left Brachial artery] Blood Pressure 156/81 H 133/69 H [Right Brachial artery] O2 Saturation Oxygen O2 Source BIPAP I&O (Last 24 Hrs): Intake and Output Totals x24h 11/27/17 11/28/17 11/29/17 23:59 23:59 23:59 Intake Total 100 1210.0 240 Output Total 2100 5975 500 [facility] -2000 -4765.0 -260 - Results Results: Laboratory Results WBC 5.4 x10^3/uL (4.8-10.8) 11/29/17 05:09 RBC 4.02 10^6/uL (4.70-6.10) L 11/29/17 05:09 Hgb 12.6 g/dL (14.0-18.0) L 11/29/17 05:09 Hct 38.3 % (42.0-52.0) L 11/29/17 05:09 MCV 95.3 fL (80.0-94.0) H 11/29/17 05:09 MCH 31.4 pg (27.0-31.0) H 11/29/17 05:09 MCHC 32.9 g/dL (32.0-36.0) 11/29/17 05:09 RDW 16.7 % (12.0-15.0) H 11/29/17 05:09 Plt Count 94 10^3/uL (130-450) L 11/29/17 05:09 MPV 9.2 fL (7.4-11.4) 11/29/17 05:09 Neut # 3.8 10^3/uL (1.5-6.6) 11/29/17 05:09 Lymph # 0.9 10^3/uL (1.5-3.5) L 11/29/17 05:09 Bent # 0.4 10^3/uL (0.0-1.0) 11/29/17 05:09 Eos # 0.3 10^3/uL (0.0-0.7) 11/29/17 05:09 Baso # 0.1 10^3/uL (0.0-0.1) 11/29/17 05:09 Absolute Nucleated RBC 0.00 x10^3/uL 11/29/17 05:09 Nucleated RBC % 0.1 /100WBC 11/29/17 05:09 PT 30.4 secs (9.9-12.6) H 11/27/17 19:42 INR 2.8 (0.8-1.2) H 11/27/17 19:42 APTT 93.2 secs (24.9-33.3) H* 11/27/17 19:42 Sodium 142 mmol/L (135-145) 11/29/17 05:09 Potassium 3.4 mmol/L (3.5-5.0) L 11/29/17 05:09 Chloride 102 mmol/L (101-111) 11/29/17 05:09 Carbon Dioxide 30 mmol/L (21-32) 11/29/17 05:09 Anion Gap 10.0 (6-13) 11/29/17 05:09 BUN 21 mg/dL (6-20) H 11/29/17 05:09 Creatinine 1.3 mg/dL (0.6-1.2) H 11/29/17 05:09 Estimated GFR (MDRD) 52 (>89) L 11/29/17 05:09 Glucose 106 mg/dL (70-100) H 11/29/17 05:09 Calcium 8.5 mg/dL (8.5-10.3) 11/29/17 05:09 Magnesium 1.9 mg/dL (1.7-2.8) 11/29/17 05:09 Total Bilirubin 1.7 mg/dL (0.2-1.0) H 11/29/17 05:09 AST 26 IU/L (10-42) 11/29/17 05:09 ALT 19 IU/L (10-60) 11/29/17 05:09 Alkaline Phosphatase 98 IU/L (42-121) 11/29/17 05:09 Troponin I 0.04 ng/mL (<0.49) 11/28/17 04:52 B-Natriuretic Peptide 1326 pg/mL (5-100) H 11/29/17 05:09 Total Protein 5.9 g/dL (6.7-8.2) L 11/29/17 05:09 Albumin 3.4 g/dL (3.2-5.5) 11/29/17 05:09 Globulin 2.5 g/dL (2.1-4.2) 11/29/17 05:09 Albumin/Globulin Ratio 1.4 (1.0-2.2) 11/29/17 05:09 Lipase 20 U/L (22-51) L 11/27/17 19:15
[2017-11-29] MEDS: SPIRONOLACTONE 25 MG TABLET PO SCH (09:03)
[2017-11-29] MEDS: NORTRIPTYLINE 10 MG CAPSULE PO SCH (09:03)
[2017-11-29] MEDS: DABIGATRAN 75 MG CAPSULE PO SCH ×2 (09:03→22:14)
[2017-11-29] MEDS: SERTRALINE 50 MG TABLET PO SCH (09:03)
[2017-11-29] MEDS: CARVEDILOL 3.125 MG TABLET PO SCH ×2 (09:03→22:15)
[2017-11-29] MEDS: TAMSULOSIN 0.4 MG CAPSULE PO SCH (09:03)
[2017-11-29] MEDS: amLODIPine 5 MG TABLET PO SCH (09:04)
[2017-11-29] MEDS: POLYETHYLENE GLYCOL 3350 17 GM PACKET PO SCH (09:04)
[2017-11-29] MEDS: FINASTERIDE 5 MG TABLET PO SCH (09:04)
[2017-11-29] MEDS: FAMOTIDINE 20 MG TABLET PO SCH (09:04)
[2017-11-29] MEDS: OXYBUTYNIN 5MG TABLET PO SCH (13:19)
[2017-11-29] MEDS: IBUPROFEN 600 MG TABLET PO SCH (22:15)
[2017-11-30 04:59] LABS: BASOPHILS # (AUTO) 0.1 10^3/uL (0.0-0.1); BASOPHILS % (AUTO) 1.2 %; EOSINOPHILS # (AUTO) 0.3 10^3/uL (0.0-0.7); EOSINOPHILS % (AUTO) 4.8 %; HGB - HEMOGLOBIN 13.5 g/dL (14.0-18.0); LYMPHOCYTES # (AUTO) 0.8 10^3/uL (1.5-3.5); LYMPHOCYTES % (AUTO) 11.9 %; MEAN CORPUSCULAR HEMOGLOBIN 31.2 pg (27.0-31.0); MEAN CORPUSCULAR VOLUME 94.6 fL (80.0-94.0); MEAN PLATELET VOLUME 9.1 fL (7.4-11.4); MONOCYTES # (AUTO) 0.4 10^3/uL (0.0-1.0); MONOCYTES % (AUTO) 6.8 %; NEUTROPHILS # (AUTO) 4.8 10^3/uL (1.5-6.6); NEUTROPHILS % (AUTO) 75.3 %; PLT - PLATELET COUNT 105 10^3/uL (130-450); RED BLOOD COUNT 4.34 10^6/uL (4.70-6.10); WHITE BLOOD COUNT 6.4 x10^3/uL (4.8-10.8)
[2017-11-30 05:06] LABS: ALBUMIN 3.8 g/dL (3.2-5.5); ALBUMIN/GLOBULIN RATIO 1.5 (1.0-2.2); BILIRUBIN,TOTAL 1.4 mg/dL (0.2-1.0); CALCIUM 8.9 mg/dL (8.5-10.3); CREATININE 1.4 mg/dL (0.6-1.2); MAGNESIUM 1.9 mg/dL (1.7-2.8); TOTAL PROTEIN 6.4 g/dL (6.7-8.2)
[2017-11-30] MEDS: SODIUM CHLORIDE FLUSH 0.9% 10 ML SYRINGE IVP SCH ×3 (05:12→16:28)
[2017-11-30] MEDS: hydrALAZINE INJ 20 MG/ML VIAL IVP SCH ×4 (05:12→22:08)
[2017-11-30] MEDS: SODIUM CHLORIDE FLUSH 0.9% 10 ML SYRINGE IVP PRN ×3 (05:23→22:10)
[2017-11-30] MEDS: FUROSEMIDE 40 MG/4 ML VIAL IVP SCH ×2 (05:23→13:55)
[2017-11-30] MEDS: NORTRIPTYLINE 10 MG CAPSULE PO SCH (08:17)
[2017-11-30] MEDS: SERTRALINE 50 MG TABLET PO SCH (08:17)
[2017-11-30] MEDS: DABIGATRAN 75 MG CAPSULE PO SCH ×2 (08:17→22:07)
[2017-11-30] MEDS: amLODIPine 5 MG TABLET PO SCH (08:17)
[2017-11-30] MEDS: POLYETHYLENE GLYCOL 3350 17 GM PACKET PO SCH (08:17)
[2017-11-30] MEDS: CARVEDILOL 3.125 MG TABLET PO SCH ×2 (08:17→22:08)
[2017-11-30] MEDS: FAMOTIDINE 20 MG TABLET PO SCH (08:17)
[2017-11-30] MEDS: TAMSULOSIN 0.4 MG CAPSULE PO SCH (08:17)
[2017-11-30] MEDS: FINASTERIDE 5 MG TABLET PO SCH (08:17)
[2017-11-30] MEDS: SPIRONOLACTONE 25 MG TABLET PO SCH (08:17)
--- NOTE | 2017-11-30 08:17 | PROVIDER PROGRESS NOTE ---
Assessment/Plan - Problem List (1) Right lower lobe pneumonia Qualifiers: Pneumonia type: due to unspecified organism Qualified Code(s): J18.1 - Lobar pneumonia, unspecified organism Assessment/Plan: A chest xray was completed today which shows bilateral pleural effusions, likely the result of ongoing CHF, but new consolidation/infiltrate predominiately in the right low base. The patient has altered mental status and has been profoundly more sleepy today per daughter's report. Now, has slight altered mental status, increased anorexia and slightly febrile with a temp max of 37.8 orally. He does not have an increased cough, no increased WBC count, and is not found to be hypoxic. Given AMS and chest x-ray results, the patient will be treated for community acquired pneumonia with Azithromycin and IV Rocephin and we will attempt to obtain a sputum sample when his mental status improves. Plan: Appreciate respiratory therapy, continue IV antibiotics, nebs, and flutter valve per RT and nursing staff. We will continue to monitor labs and clinical findings. (2) CHF (congestive heart failure), NYHA class IV Qualifiers: Congestive heart failure type: combined Congestive heart failure chronicity : acute on chronic Qualified Code(s): I50.43 - Acute on chronic combined systolic (congestive) and diastolic (congestive) heart failure Assessment/Plan: Patient suffers from both systolic and diastolic heart failure and had an updated echocardiogram today which shows a worsening aortic stenosis as compared to a previous echo dated 2016. Patient was given a el catheter in anticipation of diuresis and for comfort, which remains in place without evidence of bladder infection. Patient no longer has pitting edema, only trace and has much less edema around his face, abdomen, and legs. The IV lasix will be slowly titrated to his usual home PO dose and Spironolactone was added in exchange of Potassium, which is going well. The patient is on room air, and has not required oxygen. Plan: Continue diuresis and monitor labs (while being mindful of kidney compromise), urine output and daily weights. (3) Cerebrovascular accident (CVA) Qualifiers: Laterality of affected vessel: left Assessment/Plan: The patient has a known history of this and has residual deficits of mild cognitive impairment, delayed speech and mild right sided weakness with ongoing numbness and tingling that is chronic. Today, upon exam the patient has altered mental status and confirmed by daughters. This can be explained by new suspected pneumonia. Physical therapy was discontinued as per family request. Plan: Continue current plan of 2 daughters who provide primary care with transfers, etc. 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 He takes lisinopril, lasix, and Coreg. Blood pressures throughout today have been much improved with SBP 144/60. Patient developed a headache from the topical nitro paste, so this was discontinued. Plan: Continue current home medications, added norvasc that was increased today to the full dose of 10mg and scheduled hydralazine IV scheduled until B/P becomes better controlled. (5) Aortic stenosis, moderate Assessment/Plan: Patient has a history of aortic stenosis as per echo performed on December 2015, that is worsened today according an echocardiogarm. This is now in the moderate range of severity. Continue beta jaja to prevent episodes of tachycardia as this is detrimental for this condition. Fluid status is considered under control now based on physical exam and lower blood pressure. Plan: Monitor symptoms and treat heart failure. - Current Meds Current Meds: Current Medications Generic Name Dose Route Start Last Admin Trade Name Freq PRN Reason Stop Dose Admin Acetaminophen 650 mg 11/27/17 21:15 11/28/17 14:59 Tylenol PO 650 mg Q4HR PRN Administration Pain or Fever > 38C (100.4F) Amlodipine Besylate 5 mg 11/28/17 13:00 11/29/17 09:04 Norvasc PO 5 mg DAILY KEY Administration Carvedilol 6.25 mg 11/27/17 22:00 11/29/17 22:15 Coreg PO 6.25 mg BID KEY Administration Dabigatran 150 mg 11/28/17 09:00 11/29/17 22:14 Pradaxa PO 150 mg BID KEY Administration Famotidine 20 mg 11/28/17 09:00 11/29/17 09:04 Pepcid PO 20 mg DAILY KEY Administration Finasteride 5 mg 11/28/17 09:00 11/29/17 09:04 Proscar PO 5 mg DAILY KEY Administration Furosemide 80 mg 11/28/17 07:30 11/30/17 05:23 Lasix Inj 40 Mg Vial IVP 80 mg BIDDIURETIC KEY Administration Hydralazine HCl 10 mg 11/28/17 17:00 11/30/17 05:12 Apresoline Inj IVP 10 mg Q6H KEY Administration Ibuprofen 600 mg 11/28/17 21:00 11/29/17 22:15 Motrin PO 600 mg QPM KEY Administration Morphine Sulfate 2 mg 11/27/17 21:25 11/28/17 06:58 Morphine IVP 1 mg Q2H PRN Administration Dyspnea Nortriptyline HCl 10 mg 11/28/17 09:00 11/29/17 09:03 Pamelor PO 10 mg DAILY KEY Administration Ondansetron HCl 4 mg 11/27/17 21:15 11/28/17 06:56 Zofran Inj IVP 4 mg Q6HR PRN Administration Nausea / Vomiting Oxybutynin Chloride 5 mg 11/28/17 12:00 11/29/17 13:19 Ditropan PO 5 mg 1200 KEY Administration Polyethylene Glycol 17 gm 11/28/17 09:00 11/29/17 09:04 Miralax PO 17 gm DAILY KEY Administration Sertraline HCl 50 mg 11/28/17 09:00 11/29/17 09:03 Zoloft PO 50 mg DAILY KEY Administration Sodium Chloride 10 ml 11/27/17 21:15 11/30/17 05:23 Normal Saline Flush 0.9% IVP 10 ml PRN PRN Administration NEEDED PER PROVIDER ORDERS Sodium Chloride 10 ml 11/28/17 01:00 11/30/17 05:12 Normal Saline Flush 0.9% IVP 10 ml 0100,0900,1700 KEY Administration Spironolactone 25 mg 11/28/17 17:00 11/29/17 09:03 Aldactone PO 25 mg DAILY KEY Administration Tamsulosin HCl 0.4 mg 11/28/17 09:00 11/29/17 09:03 Flomax PO 0.4 mg DAILY KEY Administration - Lab Result Lab results reviewed: Yes Fish Bone Diagrams: 11/30/17 04:33 11/30/17 04:33 - EKG Results EKG Interpreted Independently: Yes - Diagnostic Imaging Results Diagnostic Imaging Results: Prelim report reviewed, Final report reviewed Diagnostic Imaging Results Comments: EXAM: CHEST RADIOGRAPHY EXAM DATE: 11/30/2017 10:05 AM. CLINICAL HISTORY: Coarse crackles bilaterally. COMPARISON: Chest radiograph 11/27/2017. TECHNIQUE: 1 view. FINDINGS: Lungs/Pleura: Low lung volumes. Mild central pulmonary vascular congestion. Bibasilar opacities which may reflect atelectasis, edema, or infiltrate, somewhat increased at the right lung base from prior. Probable small left pleural effusion, as before. Mediastinum: Similar cardiomegaly. Aortic calcifications. Cardiac pacing device and lead appear grossly intact. Other: None. IMPRESSION: Low lung volumes with bibasal opacities which may reflect atelectasis, edema, or infiltrate, somewhat increased at the right lung base. Probable small left pleural effusion. There may be mild congestive failure. - Additional Planning Condition/Complexity: Guarded My Orders: My Active Orders 12/01/17 05:00 CBC - COMP BLD CT W/AUTO DIFF [HEME] DAILYLAB COMPREHENSIVE METABOLIC PANEL [CHEM] DAILYLAB MAGNESIUM [CHEM] DAILYLAB Plan Discussed with:: Patient, Family, Power of Poultry Grader Time Spent: 31-60 minutes Subjective - Subjective Patient Reports: Fatigue, Fever Nursing Reports: Confused Objective Vital Signs: Vital Signs - 24 hr 11/29/17 11/29/17 11/29/17 08:24 11:10 15:46 Temperature 36.5 C 36.5 C Heart Rate [ 60 59 L Brachial] Respiratory 19 18 Rate Blood Pressure 147/82 H Blood Pressure 138/77 H 140/79 H [Left Brachial artery] Blood Pressure 122/71 [Right Brachial artery] O2 Saturation 94 94 11/29/17 11/29/17 11/30/17 16:52 22:15 00:00 Temperature 36.6 C Heart Rate [ 66 Brachial] Respiratory 18 Rate Blood Pressure 151/83 H 142/91 H Blood Pressure 149/77 H [Left Brachial artery] Blood Pressure [Right Brachial artery] O2 Saturation 99 11/30/17 11/30/17 11/30/17 05:00 05:12 05:19 Temperature Heart Rate [ 60 64 Brachial] Respiratory 24 22 Rate Blood Pressure 151/70 H Blood Pressure 151/70 H [Left Brachial artery] Blood Pressure 163/86 H [Right Brachial artery] O2 Saturation 92 94 11/30/17 05:37 Temperature Heart Rate [ 59 L Brachial] Respiratory 22 Rate Blood Pressure Blood Pressure 195/70 H [Left Brachial artery] Blood Pressure [Right Brachial artery] O2 Saturation 94 Oxygen O2 Source Room air I&O (Last 24 Hrs): Intake and Output Totals x24h 11/28/17 11/29/17 11/30/17 23:59 23:59 23:59 Intake Total 1210.0 840 190 Output Total 5975 2550 650 Balance -4765.0 -1710 -460 General: Cooperative, Mild distress (more lethargic than yesterday, now with AMS as per family report and exam.) HEENT: Atraumatic Neck: Supple, No JVD Lymphatic: no adenopathy Neuro: Focal Deficits, Speech Slurred, Other (lethargic today, baseline deficits d/t previous CVA with right sided weakness and chronic N/T as per patient.) Cardiovascular: Normal S1, Gallops Respiratory: Chest non-tender, Wheezes, Rhonchi Abdomen: Normal bowel sounds, Soft, No tenderness, No masses, Other (much less abdominal edema and side-panels have reduced from yesterday indicating overall fluid status is better controlled.) Genitourinary: Normal Inspection (el catheter in place.), No Mass, No Hernia Extremities: No clubbing, No tenderness/swelling (BLE gross edema that was appreciated upon admission is almost completely resolved. Only mild dependent edema that quickly resolves after the patient is back in bed.), Other Skin: No rashes, No breakdown, No significant lesion - Results Results: Laboratory Results WBC 6.4 x10^3/uL (4.8-10.8) 11/30/17 04:33 RBC 4.34 10^6/uL (4.70-6.10) L 11/30/17 04:33 Hgb 13.5 g/dL (14.0-18.0) L 11/30/17 04:33 Hct 41.0 % (42.0-52.0) L 11/30/17 04:33 MCV 94.6 fL (80.0-94.0) H 11/30/17 04:33 MCH 31.2 pg (27.0-31.0) H 11/30/17 04:33 MCHC 33.0 g/dL (32.0-36.0) 11/30/17 04:33 RDW 17.0 % (12.0-15.0) H 11/30/17 04:33 Plt Count 105 10^3/uL (130-450) L 11/30/17 04:33 MPV 9.1 fL (7.4-11.4) 11/30/17 04:33 Neut # 4.8 10^3/uL (1.5-6.6) 11/30/17 04:33 Lymph # 0.8 10^3/uL (1.5-3.5) L 11/30/17 04:33 Whiteside # 0.4 10^3/uL (0.0-1.0) 11/30/17 04:33 Eos # 0.3 10^3/uL (0.0-0.7) 11/30/17 04:33 Baso # 0.1 10^3/uL (0.0-0.1) 11/30/17 04:33 Absolute Nucleated RBC 0.00 x10^3/uL 11/30/17 04:33 Nucleated RBC % 0.1 /100WBC 11/30/17 04:33 PT 30.4 secs (9.9-12.6) H 11/27/17 19:42 INR 2.8 (0.8-1.2) H 11/27/17 19:42 APTT 93.2 secs (24.9-33.3) H* 11/27/17 19:42 Sodium 141 mmol/L (135-145) 11/30/17 04:33 Potassium 3.4 mmol/L (3.5-5.0) L 11/30/17 04:33 Chloride 101 mmol/L (101-111) 11/30/17 04:33 Carbon Dioxide 32 mmol/L (21-32) 11/30/17 04:33 Anion Gap 8.0 (6-13) 11/30/17 04:33 BUN 21 mg/dL (6-20) H 11/30/17 04:33 Creatinine 1.4 mg/dL (0.6-1.2) H 11/30/17 04:33 Estimated GFR (MDRD) 48 (>89) L 11/30/17 04:33 Glucose 137 mg/dL (70-100) H 11/30/17 04:33 Calcium 8.9 mg/dL (8.5-10.3) 11/30/17 04:33 Magnesium 1.9 mg/dL (1.7-2.8) 11/30/17 04:33 Total Bilirubin 1.4 mg/dL (0.2-1.0) H 11/30/17 04:33 AST 26 IU/L (10-42) 11/30/17 04:33 ALT 19 IU/L (10-60) 11/30/17 04:33 Alkaline Phosphatase 102 IU/L (42-121) 11/30/17 04:33 Troponin I 0.04 ng/mL (<0.49) 11/28/17 04:52 B-Natriuretic Peptide 1326 pg/mL (5-100) H 11/29/17 05:09 Total Protein 6.4 g/dL (6.7-8.2) L 11/30/17 04:33 Albumin 3.8 g/dL (3.2-5.5) 11/30/17 04:33 Globulin 2.6 g/dL (2.1-4.2) 11/30/17 04:33 Albumin/Globulin Ratio 1.5 (1.0-2.2) 11/30/17 04:33 Lipase 20 U/L (22-51) L 11/27/17 19:15
[2017-11-30] MEDS ORDERED: amLODIPine 5 MG TABLET PO SCH (08:19)
[2017-11-30] MEDS: MAGNESIUM OXIDE 400 MG TABLET PO SCH (08:33)
--- NOTE | 2017-11-30 11:01 | XRAY Report ---
EXAM: CHEST RADIOGRAPHY EXAM DATE: 11/30/2017 10:05 AM. CLINICAL HISTORY: Coarse crackles bilaterally. COMPARISON: Chest radiograph 11/27/2017. TECHNIQUE: 1 view. FINDINGS: Lungs/Pleura: Low lung volumes. Mild central pulmonary vascular congestion. Bibasilar opacities which may reflect atelectasis, edema, or infiltrate, somewhat increased at the right lung base from prior. Probable small left pleural effusion, as before. Mediastinum: Similar cardiomegaly. Aortic calcifications. Cardiac pacing device and lead appear gross ly intact. Other: None. IMPRESSION: Low lung volumes with bibasal opacities which may reflect atelectasis, edema, or infiltra te, somewhat increased at the right lung base. Probable small left pleural effusion. There may be mil d congestive failure. LUCITA Referring Provider Line: [phone] SITE ID: [id number]
[2017-11-30] MEDS: OXYBUTYNIN 5MG TABLET PO SCH (12:26)
[2017-11-30] MEDS ORDERED: SODIUM CHLORIDE FLUSH 0.9% 10 ML SYRINGE ONE (13:30)
[2017-11-30] MEDS: cefTRIAXone 2 GM in SODIUM CHLORIDE 0.9% MINIBAG 100 ML IV SCH (13:52)
[2017-11-30] MEDS: AZITHROMYCIN 250 MG TABLET PO SCH (13:53)
[2017-11-30] MEDS ORDERED: LEVALBUTEROL 1.25 MG/3 ML NEB INH PRN (15:00)
[2017-11-30] MEDS: LEVALBUTEROL 1.25 MG/3 ML NEB INH SCH ×2 (16:45→19:20)
[2017-11-30] MEDS: IBUPROFEN 600 MG TABLET PO SCH (22:07)
[2017-12-01] MEDS: SODIUM CHLORIDE FLUSH 0.9% 10 ML SYRINGE IVP SCH ×3 (05:15→17:35)
[2017-12-01] MEDS: hydrALAZINE INJ 20 MG/ML VIAL IVP SCH ×4 (05:17→22:25)
[2017-12-01] MEDS: SODIUM CHLORIDE FLUSH 0.9% 10 ML SYRINGE IVP PRN (05:18)
[2017-12-01 05:24] LABS: BASOPHILS % (AUTO) 0.7 %; EOSINOPHILS # (AUTO) 0.1 10^3/uL (0.0-0.7); EOSINOPHILS % (AUTO) 1.1 %; HGB - HEMOGLOBIN 12.8 g/dL (14.0-18.0); LYMPHOCYTES % (AUTO) 17.5 %; MEAN CORPUSCULAR HGB CONC 33.7 g/dL (32.0-36.0); MEAN CORPUSCULAR VOLUME 94.8 fL (80.0-94.0); MEAN PLATELET VOLUME 9.5 fL (7.4-11.4); MONOCYTES # (AUTO) 0.5 10^3/uL (0.0-1.0); MONOCYTES % (AUTO) 8.5 %; NEUTROPHILS # (AUTO) 4.1 10^3/uL (1.5-6.6); NEUTROPHILS % (AUTO) 72.2 %; PLT - PLATELET COUNT 105 10^3/uL (130-450); RED BLOOD COUNT 4.01 10^6/uL (4.70-6.10); WHITE BLOOD COUNT 5.7 x10^3/uL (4.8-10.8)
[2017-12-01 05:34] LABS: ALBUMIN 3.4 g/dL (3.2-5.5); ALBUMIN/GLOBULIN RATIO 1.3 (1.0-2.2); BILIRUBIN,TOTAL 1.2 mg/dL (0.2-1.0); CALCIUM 8.7 mg/dL (8.5-10.3); CREATININE 1.5 mg/dL (0.6-1.2); MAGNESIUM 2.1 mg/dL (1.7-2.8)
[2017-12-01] MEDS: FUROSEMIDE 40 MG TABLET PO SCH ×2 (06:57→08:14)
[2017-12-01] MEDS: LEVALBUTEROL 1.25 MG/3 ML NEB INH SCH ×2 (07:23→20:32)
[2017-12-01] MEDS: AZITHROMYCIN 250 MG TABLET PO SCH (08:12)
[2017-12-01] MEDS: DABIGATRAN 75 MG CAPSULE PO SCH ×2 (08:13→20:45)
[2017-12-01] MEDS: POLYETHYLENE GLYCOL 3350 17 GM PACKET PO SCH (08:13)
[2017-12-01] MEDS: CARVEDILOL 3.125 MG TABLET PO SCH ×2 (08:13→20:45)
[2017-12-01] MEDS: FINASTERIDE 5 MG TABLET PO SCH (08:13)
[2017-12-01] MEDS: FAMOTIDINE 20 MG TABLET PO SCH (08:13)
[2017-12-01] MEDS: SERTRALINE 50 MG TABLET PO SCH (08:14)
[2017-12-01] MEDS: SPIRONOLACTONE 25 MG TABLET PO SCH (08:14)
[2017-12-01] MEDS: TAMSULOSIN 0.4 MG CAPSULE PO SCH (08:14)
[2017-12-01] MEDS: NORTRIPTYLINE 10 MG CAPSULE PO SCH (08:14)
[2017-12-01] MEDS: MAGNESIUM OXIDE 400 MG TABLET PO SCH (08:18)
[2017-12-01] MEDS ORDERED: POTASSIUM CHLORIDE 20 MEQ TABLET PO SCH (09:00)
[2017-12-01] MEDS ORDERED: MIN OIL/DIMETHICON/COCONUT OIL 92 GM TUBE TOP PRN (11:01)
[2017-12-01] MEDS: OXYBUTYNIN 5MG TABLET PO SCH (11:55)
[2017-12-01] MEDS: cefTRIAXone 2 GM in SODIUM CHLORIDE 0.9% MINIBAG 100 ML IV SCH (13:56)
[2017-12-01] MEDS ORDERED: ZINC OXIDE 20% OINT 28.35 GM TUBE TOP PRN (14:19)
--- NOTE | 2017-12-01 17:06 | PROVIDER PROGRESS NOTE ---
Assessment/Plan - Problem List (1) Right lower lobe pneumonia Qualifiers: Pneumonia type: due to unspecified organism Qualified Code(s): J18.1 - Lobar pneumonia, unspecified organism Assessment/Plan: A chest xray was completed yesterday which showed bilateral pleural effusions, likely the result of ongoing CHF, but new consolidation/infiltrate predominiately in the right low base. The patient has had altered mental status and has been not quite himself, per daughter's report. He was also noted to have a temp max of 37.8 orally, but is resolved today after starting the antibiotics. He does not have an increased cough, no increased WBC count, and is not found to be hypoxic. Given AMS and chest x-ray results, and mild fever, the patient is being treated for CAP with Azithromycin and IV Rocephin and we will attempt to obtain a sputum sample, although he has not had any reports of a productive cough and as per chart review cannot follow directions regarding the flutter valve use. Plan: Appreciate respiratory therapy, continue IV antibiotics, nebs, and flutter valve per RT and nursing staff. We will continue to monitor labs and mental status. (2) CHF (congestive heart failure), NYHA class IV Qualifiers: Congestive heart failure type: combined Congestive heart failure chronicity : acute on chronic Qualified Code(s): I50.43 - Acute on chronic combined systolic (congestive) and diastolic (congestive) heart failure Assessment/Plan: Patient suffers from both systolic and diastolic heart failure and had an updated echocardiogram today which shows a worsening aortic stenosis as compared to a previous echo dated 2016. Patient was given a el catheter in anticipation of diuresis and for comfort, which remains in place, with a mild cloudiness noted today. Patient no longer has pitting edema, only trace and has much less edema around his face, abdomen, and legs. The IV lasix was changed oral at double his home dose, which will continue to be slowly titrated to his usual home PO dose. Based on high pulmonary pressure, Spironolactone was added in exchange of Potassium, which is going well. The patient is on room air, and has not required oxygen. BNP values are steadily decreasing, and urine output remains robust. Plan: Continue diuresis and monitor labs (while being mindful of kidney compromise), urine output and daily weights. (3) Cerebrovascular accident (CVA) Qualifiers: Laterality of affected vessel: left Assessment/Plan: The patient has a known history of this and has residual deficits of mild cognitive impairment, delayed speech and mild right sided weakness with ongoing numbness and tingling that is chronic. Today, upon exam the patient has altered mental status and confirmed by daughters, that is mildly improved from yesterday's exam. This can be explained by newly diagnosed pneumonia. Physical therapy was discontinued as per family request. Palliative care was consulted today after discussion with daughters. I appreciate this service and believe this is a great plan with the multiple chronic illnesses and slow decline that this patient now has. Plan: Continue current plan of 2 daughters who provide primary care with transfers. Palliative care to continue after discharge from the hospital. (4) Hypertension Qualifiers: Hypertension type: essential hypertension Qualified Code(s): I10 - Essential (primary) hypertension Assessment/Plan: Patient has a history of this and according to his knitting machine tender/daughter, he was previously prescribed Norvasc, but this was recently discontinued due to the patient having controlled B/Ps. He takes lisinopril, lasix, and Coreg. Blood pressures throughout today have been much improved with SBP 144/60. Patient developed a headache from the topical nitro paste, so this was discontinued. The patient was put on Norvasc for 48 hours while here, but this medication will not be a good choice spray gun sizer as it relaxes the myocardium, which would be contraindicated with this patient's combined CHF and aortic stenosis. A better choice would be to continue hydralazine in PO form as it is a straight up vasodialator that will have a good effect in this setting. Plan: Continue current home medications, and scheduled hydralazine IV scheduled until B/P becomes better controlled. (5) Aortic stenosis, moderate Assessment/Plan: Patient has a history of aortic stenosis as per echo performed on December 2015, that is worsened today according an echocardiogarm. This is now in the moderate range of severity. Continue beta jaja to prevent episodes of tachycardia as this is detrimental for this condition. Fluid status is considered under control now based on physical exam and lower blood pressure. Avoid agents such as Norvasc for blood pressure control as this will relax the myocardium. This patient needs to maintain a robust myocardium since it has to pump against a stenotic valve. Plan: Monitor symptoms and treat heart failure. - Current Meds Current Meds: Current Medications Generic Name Dose Route Start Last Admin Trade Name Freq PRN Reason Stop Dose Admin Acetaminophen 650 mg 11/27/17 21:15 11/28/17 14:59 Tylenol PO 650 mg Q4HR PRN Administration Pain or Fever > 38C (100.4F) Azithromycin 500 mg 11/30/17 14:00 12/01/17 08:12 Zithromax PO 500 mg DAILY KEY Administration Carvedilol 6.25 mg 11/27/17 22:00 12/01/17 08:13 Coreg PO 6.25 mg BID KEY Administration Dabigatran 150 mg 11/28/17 09:00 12/01/17 08:13 Pradaxa PO 150 mg BID KEY Administration Famotidine 20 mg 11/28/17 09:00 12/01/17 08:13 Pepcid PO 20 mg DAILY KEY Administration Finasteride 5 mg 11/28/17 09:00 12/01/17 08:13 Proscar PO 5 mg DAILY KEY Administration Furosemide 80 mg 12/01/17 07:00 12/01/17 08:14 Lasix PO 80 mg DAILY KEY Administration Hydralazine HCl 10 mg 11/28/17 17:00 12/01/17 11:54 Apresoline Inj IVP 10 mg Q6H KEY Administration Ceftriaxone Sodium 2 gm/ 100 mls @ 200 mls/hr 11/30/17 14:00 12/01/17 14:40 Sodium Chloride IV Infused Q24H KEY Infusion Ibuprofen 600 mg 11/28/17 21:00 11/30/17 22:07 Motrin PO 600 mg QPM KEY Administration Levalbuterol HCl 1.25 mg 11/30/17 14:00 12/01/17 07:23 Xopenex INH 1.25 mg RTBID KEY Administration Magnesium Oxide 400 mg 11/30/17 09:00 12/01/17 08:18 Mag Ox PO 400 mg DAILYWM KEY Administration Morphine Sulfate 2 mg 11/27/17 21:25 11/28/17 06:58 Morphine IVP 1 mg Q2H PRN Administration Dyspnea Nortriptyline HCl 10 mg 11/28/17 09:00 12/01/17 08:14 Pamelor PO 10 mg DAILY KEY Administration Ondansetron HCl 4 mg 11/27/17 21:15 11/28/17 06:56 Zofran Inj IVP 4 mg Q6HR PRN Administration Nausea / Vomiting Oxybutynin Chloride 5 mg 11/28/17 12:00 12/01/17 11:55 Ditropan PO 5 mg 1200 KEY Administration Polyethylene Glycol 17 gm 11/28/17 09:00 12/01/17 08:13 Miralax PO 17 gm DAILY KEY Administration Sertraline HCl 50 mg 11/28/17 09:00 12/01/17 08:14 Zoloft PO 50 mg DAILY KEY Administration Sodium Chloride 10 ml 11/27/17 21:15 12/01/17 05:18 Normal Saline Flush 0.9% IVP 10 ml PRN PRN Administration NEEDED PER PROVIDER ORDERS Sodium Chloride 10 ml 11/28/17 01:00 12/01/17 11:55 Normal Saline Flush 0.9% IVP 10 ml 0100,0900,1700 KEY Administration Spironolactone 25 mg 11/28/17 17:00 12/01/17 08:14 Aldactone PO 25 mg DAILY KEY Administration Tamsulosin HCl 0.4 mg 11/28/17 09:00 12/01/17 08:14 Flomax PO 0.4 mg DAILY KEY Administration - Lab Result Lab results reviewed: Yes Fish Bone Diagrams: 12/01/17 04:55 12/01/17 04:55 - Diagnostic Imaging Results Diagnostic Imaging Results: Final report reviewed - Additional Planning Condition/Complexity: Improved My Orders: My Active Orders 12/01/17 07:00 Furosemide [Lasix] 80 mg PO DAILY 12/01/17 11:01 Min Oil/Dimeth/Coconut Oil Crm [Cavilon] 1 applic TOP PRN PRN 12/01/17 14:19 Zinc Oxide 20% Oint [Zinc Oxide] 1 applic TOP PRN PRN 12/02/17 05:00 BNP - B-NATRIURETIC PEPTIDE [IAI] DAILYLAB 12/03/17 05:00 BNP - B-NATRIURETIC PEPTIDE [IAI] DAILYLAB Plan Discussed with:: Patient, Family, Power of [employer] Time Spent: 31-60 minutes Subjective - Subjective Patient Reports: Feeling Better Nursing Reports: No Complaints Objective Vital Signs: Vital Signs - 24 hr 11/30/17 11/30/17 11/30/17 19:20 22:08 23:30 Temperature Heart Rate 58 L Heart Rate [ Brachial] Respiratory 20 20 Rate Blood Pressure 141/84 H Blood Pressure [Left Brachial artery] Blood Pressure [Right Brachial artery] O2 Saturation 12/01/17 12/01/17 12/01/17 04:00 05:17 07:03 Temperature 36.5 C Heart Rate Heart Rate [ 65 Brachial] Respiratory 18 Rate Blood Pressure 153/91 H Blood Pressure [Left Brachial artery] Blood Pressure 153/91 H 139/77 H [Right Brachial artery] O2 Saturation 98 12/01/17 12/01/17 12/01/17 07:23 07:54 11:45 Temperature 36.5 C 36.4 C L Heart Rate 65 Heart Rate [ 64 63 Brachial] Respiratory 16 19 20 Rate Blood Pressure Blood Pressure 164/81 H [Left Brachial artery] Blood Pressure 146/83 H [Right Brachial artery] O2 Saturation 93 97 12/01/17 16:00 Temperature 36.4 C L Heart Rate Heart Rate [ 60 Brachial] Respiratory 20 Rate Blood Pressure Blood Pressure 148/74 H [Left Brachial artery] Blood Pressure [Right Brachial artery] O2 Saturation 99 Oxygen O2 Source Room air I&O (Last 24 Hrs): Intake and Output Totals x24h 11/29/17 11/30/17 12/01/17 23:59 23:59 23:59 Intake Total 840 1090 1180 Output Total 2550 3050 750 Balance -1710 -1960 430 General: Alert, Cooperative, No acute distress HEENT: Atraumatic, PERRLA Neck: Supple, No JVD Lymphatic: no adenopathy Neuro: Alert, Disoriented, Focal Deficits, Speech Slurred Cardiovascular: Regular rate Respiratory: Chest non-tender, No respiratory distress, Rhonchi, Other (left low base with coarse crackles.) Abdomen: Normal bowel sounds, Soft, No tenderness, No masses Genitourinary: Normal Inspection (no swelling) Extremities: No clubbing, No tenderness/swelling, Other (swelling/edema is improved.) Skin: No rashes - Results Results: Laboratory Results WBC 5.7 x10^3/uL (4.8-10.8) 12/01/17 04:55 RBC 4.01 10^6/uL (4.70-6.10) L 12/01/17 04:55 Hgb 12.8 g/dL (14.0-18.0) L 12/01/17 04:55 Hct 38.0 % (42.0-52.0) L 12/01/17 04:55 MCV 94.8 fL (80.0-94.0) H 12/01/17 04:55 MCH 32.0 pg (27.0-31.0) H 12/01/17 04:55 MCHC 33.7 g/dL (32.0-36.0) 12/01/17 04:55 RDW 17.0 % (12.0-15.0) H 12/01/17 04:55 Plt Count 105 10^3/uL (130-450) L 12/01/17 04:55 MPV 9.5 fL (7.4-11.4) 12/01/17 04:55 Neut # 4.1 10^3/uL (1.5-6.6) 12/01/17 04:55 Lymph # 1.0 10^3/uL (1.5-3.5) L 12/01/17 04:55 [place] # 0.5 10^3/uL (0.0-1.0) 12/01/17 04:55 Eos # 0.1 10^3/uL (0.0-0.7) 12/01/17 04:55 Baso # 0.0 10^3/uL (0.0-0.1) 12/01/17 04:55 Absolute Nucleated RBC 0.00 x10^3/uL 12/01/17 04:55 Nucleated RBC % 0.1 /100WBC 12/01/17 04:55 PT 30.4 secs (9.9-12.6) H 11/27/17 19:42 INR 2.8 (0.8-1.2) H 11/27/17 19:42 APTT 93.2 secs (24.9-33.3) H* 11/27/17 19:42 Sodium 141 mmol/L (135-145) 12/01/17 04:55 Potassium 3.0 mmol/L (3.5-5.0) L 12/01/17 04:55 Chloride 100 mmol/L (101-111) L 12/01/17 04:55 Carbon Dioxide 31 mmol/L (21-32) 12/01/17 04:55 Anion Gap 10.0 (6-13) 12/01/17 04:55 BUN 24 mg/dL (6-20) H 12/01/17 04:55 Creatinine 1.5 mg/dL (0.6-1.2) H 12/01/17 04:55 Estimated GFR (MDRD) 44 (>89) L 12/01/17 04:55 Glucose 114 mg/dL (70-100) H 12/01/17 04:55 Calcium 8.7 mg/dL (8.5-10.3) 12/01/17 04:55 Magnesium 2.1 mg/dL (1.7-2.8) 12/01/17 04:55 Total Bilirubin 1.2 mg/dL (0.2-1.0) H 12/01/17 04:55 AST 23 IU/L (10-42) 12/01/17 04:55 ALT 17 IU/L (10-60) 12/01/17 04:55 Alkaline Phosphatase 87 IU/L (42-121) 12/01/17 04:55 Troponin I 0.04 ng/mL (<0.49) 11/28/17 04:52 B-Natriuretic Peptide 1074 pg/mL (5-100) H 12/01/17 04:55 Total Protein 6.0 g/dL (6.7-8.2) L 12/01/17 04:55 Albumin 3.4 g/dL (3.2-5.5) 12/01/17 04:55 Globulin 2.6 g/dL (2.1-4.2) 12/01/17 04:55 Albumin/Globulin Ratio 1.3 (1.0-2.2) 12/01/17 04:55 Lipase 20 U/L (22-51) L 11/27/17 19:15
--- NOTE | 2017-12-01 19:27 | CONSULTATION NOTE ---
Palliative Care Consultation - Referral Referring Provider: Sydnie ESPINOZA Time of Visit: [id number] Referral setting: Hospitalized patient Referral Reason: Acute on Chronic Heart Failure/pneumonia/Goals of Care - Information Sources Records reviewed: RN notes reviewed, Previous records reviewed History/Review of Systems obtained from: Patient, Family (Daughter Shanita Cordero present for visit) Exam limitations: Clinical condition (patient with some STM issues; daughter assisting with ROS) - History of Present Illness Brief History of Present Illness: This is a 87-year-old gentleman he was admitted on 11-27-2017 to [facility] with an acute exacerbation of his diastolic heart failure, is having increased shortness of breath, increased lower extremity edema despite titration of diuretics, and decreased activity tolerance. He did spike a fever on 415 with altered mental status, and antibiotics were started with improvement of his cognitive status, as well as with aggressive diuresis his lower extremity edema is now resolved. He did have an echo on 11-28-2017 that does show moderate concentric left ventricular hypertrophy with an ejection fraction of 55-60%, right ventricular systolic function is mildly impaired, mild aortic stenosis and aortic regurgitation. Patient is pacemaker dependent, as well as on Pradexa for know atrial fibrillation. His other underlying comorbidities include coronary artery disease with stent, hypertension, chronic kidney disease , hyperlipidemia, sleep apnea, and mild residual left-sided weakness from stroke in 2016. Patient was also hospitalized at [facility] earlier this year [id number], for similar diastolic heart failure, with a large left pleural effusion. This included a thoracentesis for removal of 2000 mils, as well as a chest tube for pneumothorax. He is continued to be quite weak, has had decreased activity tolerance, and increased need for assistance for his ADLs since this time period. Patient is quite frail, currently has El catheter draining clear yellow urine , his breathlessness has resolved, he does have some shortness of breath with conversation but is not O2 dependent. He is able to participate in the conversation, palliative care is meeting with his daughter and patient to review goals of care. Medical/Surgical History - Past Medical History Cardiovascular: reports: Congestive heart failure, Hypertension, Coronary artery disease, Atrial fibrillation Respiratory: reports: Pneumonia, Shortness of breath, CPAP use Neuro: reports: Dementia, CVA (2016 with left side weakness), TIA Endocrine/Autoimmune: reports: None GI: reports: Ulcers, Pancreatitis : reports: Benign prostate hypertrophy HEENT: reports: Chronic vision loss Psych: reports: None Musculoskeletal: reports: Osteoarthritis Derm: reports: None MRSA Hx?: No Other Past Medical History: pacemaker - Past Surgical History General: reports: Cholecystectomy, Hiatal hernia repair Cardiovascular: reports: Coronary stent, Pacemaker - Substance History Use: Uses substance without health or social issues: Tobacco (quit 40 years ago) , Alcohol (socially only) Social History - Living Situation Living arrangement: At home Living Situation: With family Support System: Patient retired after 30 years with our echo at age 54, his passed about 11 years ago with post polio syndrome and was cared for with hospice, his daughter and son-in-law have been his main caregivers. He lives in a small in the apartment, with some accommodations for disabilities. His health has deteriorated over the last 6 years, has needed more more assistance, his daughter checks on him frequently through the day has monitors which can see, and does spend the night as he needs assistance getting up and down. He recently worked with [employer] and applied for the new program tailored support for older adults, the provides 20 hours a month of respite. This is not started yet they have their interview on . Family History - Family History Family History: Mother: , Father: Medications/Allergies - Medications Active Medication List: Active Medications Acetaminophen (Tylenol) 650 mg PO Q4HR PRN PRN Reason: Pain or Fever > 38C (100.4F) Last Admin: 11/28/17 14:59 Dose: 650 mg Azithromycin (Zithromax) 500 mg PO DAILY [facility] Last Admin: 12/01/17 08:12 Dose: 500 mg Carvedilol (Coreg) 6.25 mg PO BID [facility] Last Admin: 12/01/17 08:13 Dose: 6.25 mg Dabigatran (Pradaxa) 150 mg PO BID [facility] Last Admin: 12/01/17 08:13 Dose: 150 mg Famotidine (Pepcid) 20 mg PO DAILY [facility] Last Admin: 12/01/17 08:13 Dose: 20 mg Finasteride (Proscar) 5 mg PO DAILY [facility] Last Admin: 12/01/17 08:13 Dose: 5 mg Furosemide (Lasix) 80 mg PO DAILY [facility] Last Admin: 12/01/17 08:14 Dose: 80 mg Hydralazine HCl (Apresoline Inj) 10 mg IVP Q6H [facility] Last Admin: 12/01/17 17:29 Dose: 10 mg Ceftriaxone Sodium 2 gm/ (Sodium Chloride) 100 mls @ 200 mls/hr IV Q24H [facility] Last Infusion: 12/01/17 14:40 Dose: Infused Ibuprofen (Motrin) 600 mg PO QPM [facility] Last Admin: 11/30/17 22:07 Dose: 600 mg Levalbuterol HCl (Xopenex) 1.25 mg INH RTQ4H PRN PRN Reason: Wheezing Levalbuterol HCl (Xopenex) 1.25 mg INH RTBID [facility] Last Admin: 12/01/17 07:23 Dose: 1.25 mg Magnesium Oxide (Mag Ox) 400 mg PO DAILYWM [facility] Last Admin: 12/01/17 08:18 Dose: 400 mg Mineral Oil (Cavilon) 1 applic TOP PRN PRN PRN Reason: Skin Care Morphine Sulfate (Morphine) 2 mg IVP Q2H PRN PRN Reason: Dyspnea Last Admin: 11/28/17 06:58 Dose: 1 mg Multi-Ingredient Ointment (Zinc Oxide) 1 applic TOP PRN PRN PRN Reason: Skin Care Nortriptyline HCl (Pamelor) 10 mg PO DAILY [facility] Last Admin: 12/01/17 08:14 Dose: 10 mg Ondansetron HCl (Zofran Inj) 4 mg IVP Q6HR PRN PRN Reason: Nausea / Vomiting Last Admin: 11/28/17 06:56 Dose: 4 mg Oxybutynin Chloride (Ditropan) 5 mg PO 1200 [facility] Last Admin: 12/01/17 11:55 Dose: 5 mg Polyethylene Glycol (Miralax) 17 gm PO DAILY [facility] Last Admin: 12/01/17 08:13 Dose: 17 gm Sertraline HCl (Zoloft) 50 mg PO DAILY [facility] Last Admin: 12/01/17 08:14 Dose: 50 mg Sodium Chloride (Normal Saline Flush 0.9%) 10 ml IVP PRN PRN PRN Reason: NEEDED PER PROVIDER ORDERS Last Admin: 12/01/17 05:18 Dose: 10 ml Sodium Chloride (Normal Saline Flush 0.9%) 10 ml IVP 0100,0900,1700 [facility] Last Admin: 12/01/17 17:35 Dose: 10 ml Spironolactone (Aldactone) 25 mg PO DAILY [facility] Last Admin: 12/01/17 08:14 Dose: 25 mg Tamsulosin HCl (Flomax) 0.4 mg PO DAILY [facility] Last Admin: 12/01/17 08:14 Dose: 0.4 mg Temazepam (Restoril) 15 mg PO QPM PRN PRN Reason: Insomnia Potassium Chloride [K-Dur] 20 meq PO BIDWM 01/14/15 Sertraline [Zoloft] 50 mg PO DAILY 01/14/15 Finasteride 5 mg PO DAILY 06/25/15 Oxybutynin [Ditropan] 5 mg PO BID 12/26/15 Tamsulosin HCl [Flomax] 0.4 mg PO DAILY 12/26/15 Nortriptyline [Pamelor] 10 mg PO DAILY 08/17/17 Polyethylene Glycol 3350 [Miralax] 17 gm PO DAILY 08/17/17 Dabigatran Etexilate Mesylate [Pradaxa] 150 mg PO BID 11/27/17 Carvedilol 6.25 mg PO BID 11/28/17 Furosemide 40 mg PO DAILY 11/28/17 Lisinopril 40 mg PO DAILY 11/28/17 - Allergies Allergies/Adverse Reactions: Allergies Allergy/AdvReac Type Severity Reaction Status Date / Time [id number] Reductase AdvReac Dizziness Verified 08/17/17 10:14 Inhibitor Review of Systems - Constitutional Constitutional: reports: Fatigue, Fever (yesterday), Weakness, Poor appetite - Eyes Eyes: reports: Vision loss - Ears, Nose & Throat Ears, Nose & Throat: reports: Hearing loss, Dry mouth - Cardiovascular Cardiovascular: reports: Irregular heart rate, Exertional dyspnea, Decr. exercise tolerance. denies: Chest pain - Respiratory Respiratory: reports: SOB with exertion - Gastrointestinal Gastrointestinal: reports: Early satiety. denies: Reflux/heartburn - Genitourinary Genitourinary: reports: Frequency, Urgency, Incontinence (mild), Other ( currently has el for diuresis) - Musculoskeletal Musculoskeletal: reports: Stiffness, Limited range of motion, Muscle weakness - Integumentary Integumentary: reports: Dryness - Neurological Neurological: reports: General weakness, Memory problems - Psychiatric Psychiatric: reports: Other (delerium yesterday; daughter reports improved today ; has had ongoing cognitive decline) - Endocrine Endocrine: denies: Diabetes type 2, Hypothyroidism - Hematologic/Lymphatic Hematologic/Lymphatic: reports: Anemia (12.8) - All Other Systems All Other Systems: reports: Reviewed and negative Physical Exam - Vital Signs Vital Signs: Vital Signs x48h Temp Pulse Resp BP BP Pulse Ox 12/01/17 17:29 140/74 H 12/01/17 16:00 36.4 C L 60 20 148/74 H 99 12/01/17 11:45 36.4 C L 63 20 164/81 H 97 - Physical Exam General Appearance: positive: Mild distress (breathlessness with conversation) Eyes Bilateral: positive: Normal inspection ENT: positive: Dry mucous membranes Neck: positive: No JVD, Trachea midline Cardiovascular: positive: Irregularly irregular, Diastolic murmur Respiratory: positive: Diminished in bases. negative: Wheezes, Rales, Rhonchi Abdomen: positive: Non-tender, Soft, Nml bowel sounds Skin: positive: Pallor, Dryness Extremities: positive: No pedal edema (had significant edema on admit), Other ( has been up ambulating with assistance;) Neurologic/Psychiatric: positive: Mood/affect nml, Disoriented to time, Weakness Palliative Care - POLST Patient has POLST: Yes POLST Status: DNR, Comfort Measures (POLST completed at visit) Pain: No pain Dyspnea: Moderate (4-6) Constipation: No Performance Status: Patient with very poor activity tolerance, does need assistance up and down and with bathing. Concerned may need lift on discharge from hospital or in the near future, does have a hospital bed at home. Did have home physical therapy and Occupational Therapy and discharge from stay at [facility] in August , patient found it very taxing and did not improve from baseline. Patient has been getting stronger over the last 24 hours, but still will need considerable assistance on discharge home. Daughter does not want him to go to a SNF as last stay had to be there almost 10/03 because he was easily confused. - Palliative Care Discussion: Patient does admit to it being "rough" over the last few weeks, is fairly pragmatic that he is 87 years old and has lived a good life. Patient had been acutely ill in the last 24 hours, with delirium and confusion, had been concerned regarding patient's quality of life and possible transition to comfort measures only. It made agreement to try antibiotics as he had been febrile, and patient has continued to improve. Patient able to participate in the conversation, did have to repeat multiple time concepts, but for the most part was able to state his goals of care. In the context of this he has not wanted to return back to the hospital, but both times was overwhelmed and really distressed with his shortness of breath and fluid overload. Both patient and daughter able to express wishes to focus more on comfort, managing patient's decline at home, and increasing support as indicated. Conversation included the continuum of care, including hospice. Patient's [facility] filled out in 2016 did have full treatment though was DNA R, discussion was had and the did pulsed to reflect current goals of care. In the context of this the goals are to focus on comfort spending time with family and that his end-of-life a comfortable respectful at home. They are willing to consider hospice at the point of time patient qualifies, did follow-up with medical assistant, patient's goals align but will need to monitor her status over the next few weeks to see if he is going to improve or continue to decline. Counseling also included the role of home health, particularly nursing, to monitor patient's response to diuretics as patient's activity tolerance is quite poor and most likely unable to get out to provide her office. We also discussed the role of palliative care and will pursue outpatient palliative care referral to follow patient in home setting Results - Lab Results Lab results reviewed: Yes Fish Bones: 12/01/17 04:55 12/01/17 04:55 Lab and Imaging Results: Lab Results x24hrs 12/01/17 12/01/17 12/01/17 Range/Units 04:55 04:55 04:55 WBC 5.7 (4.8-10.8) x10^3/uL RBC 4.01 L (4.70-6.10) 10^6/uL Hgb 12.8 L (14.0-18.0) g/dL Hct 38.0 L (42.0-52.0) % MCV 94.8 H (80.0-94.0) fL MCH 32.0 H (27.0-31.0) pg MCHC 33.7 (32.0-36.0) g/dL RDW 17.0 H (12.0-15.0) % Plt Count 105 L (130-450) 10^3/uL MPV 9.5 (7.4-11.4) fL Neut # 4.1 (1.5-6.6) 10^3/uL Lymph # 1.0 L (1.5-3.5) 10^3/uL [place] # 0.5 (0.0-1.0) 10^3/uL Eos # 0.1 (0.0-0.7) 10^3/uL Baso # 0.0 (0.0-0.1) 10^3/uL Absolute Nucleated RBC 0.00 x10^3/uL Nucleated RBC % 0.1 /100WBC Sodium 141 (135-145) mmol/L Potassium 3.0 L (3.5-5.0) mmol/L Chloride 100 L (101-111) mmol/L Carbon Dioxide 31 (21-32) mmol/L Anion Gap 10.0 (6-13) BUN 24 H (6-20) mg/dL Creatinine 1.5 H (0.6-1.2) mg/dL Estimated GFR (MDRD) 44 L (>89) Glucose 114 H (70-100) mg/dL Calcium 8.7 (8.5-10.3) mg/dL Magnesium 2.1 (1.7-2.8) mg/dL Total Bilirubin 1.2 H (0.2-1.0) mg/dL AST 23 (10-42) IU/L ALT 17 (10-60) IU/L Alkaline Phosphatase 87 (42-121) IU/L B-Natriuretic Peptide 1074 H (5-100) pg/mL Total Protein 6.0 L (6.7-8.2) g/dL Albumin 3.4 (3.2-5.5) g/dL Globulin 2.6 (2.1-4.2) g/dL Albumin/Globulin Ratio 1.3 (1.0-2.2) Impression and Recommendations - Palliative Care Impression: This is a mark 87-year-old gentleman with acute on chronic diastolic heart failure, community-acquired pneumonia, diminishing functional status, and mild cognitive decline. He presents with fairly pragmatic approach to his current situation, when discharge home would like to focus on comfort and avoid rehospitalization. Palliative care to provide support for coordination of care , symptom management, and ongoing definition of goals. Recommendations/Counseling Done: 1. Acute on chronic heart failure, with hospitalization. Patient with fragile cardiac status, would benefit from closer monitoring, recommend home health RN for monitoring cardiac status, medication adherence, and titration of medications as appropriate with provider support. Patient's goals are to avoid rehospitalization, and to transition to hospice when appropriate. Consultation with hospice medical assistant, patient is not oxygen dependent, but if remains fragile and continued decline in the home setting would consider admission to services. Patient though may stabilize, will follow with palliative care support and home health nursing for monitoring and adherence. 2. Generalized weakness. Patient has had ongoing functional decline, some of this is related to poor activity tolerance. Transfers are becoming more difficult, patient is not back to baseline prior to admit. He has though been deteriorating over the last few weeks. Daughter is not interested in rehab, but consider a different options for transferring, will have home health PT to evaluate equipment needs, transfer techniques, and possible sit to stand or Thomas lift appropriateness. Reassured I could order equipment as well as do [id number] depending on recommendations. 3. Advanced care planning. Counseling regarding the continuum of care, including palliative care, home health care services, and hospice as part of the continuum. Revisited [facility] and updated to reflect patient's and daughter' s goals. Will follow up on getting outpatient referral with Dr. Ross and visit on discharge next week. On the Isaías index which looks at hospitalized adults age 70 and older, at all causes 1 year mortality outcomes. Patient does score a 5. Risks calculators cannot predict the future for any one individual, but gives an estimate of how many people with similar risk factors will live and , but cannot identify who will live and his 1 year mortality rate is 34%. Time Spent: Time spent 90 minutes with greater than 50% of this done in counseling with patient and daughter, regarding the continuum of care, clarifying goals, completing [facility], coordination of care with hospitalist regarding home health needs at discharge. [id number] for home health. It would be a taxing considerable effort for the patient to leave the home, patient requires assistance of home health RN services to monitor acute on chronic heart failure, medication adherence, titration of medications and teaching regarding disease process. Physical therapy for home safety eval, evaluation for appropriate equipment needs and lifts, as well as transfer techniques.
[2017-12-01] MEDS: IBUPROFEN 600 MG TABLET PO SCH (20:49)
[2017-12-02] MEDS: SODIUM CHLORIDE FLUSH 0.9% 10 ML SYRINGE IVP SCH ×2 (05:27→09:34)
[2017-12-02] MEDS: hydrALAZINE INJ 20 MG/ML VIAL IVP SCH ×2 (05:27→11:22)
[2017-12-02] MEDS ORDERED: FUROSEMIDE 40 MG TABLET PO SCH (07:34)
[2017-12-02 07:46] LABS: BASOPHILS # (AUTO) 0.1 10^3/uL (0.0-0.1); BASOPHILS % (AUTO) 1.4 %; EOSINOPHILS # (AUTO) 0.4 10^3/uL (0.0-0.7); HGB - HEMOGLOBIN 13.3 g/dL (14.0-18.0); LYMPHOCYTES % (AUTO) 17.4 %; MEAN CORPUSCULAR HEMOGLOBIN 32.2 pg (27.0-31.0); MEAN CORPUSCULAR HGB CONC 33.9 g/dL (32.0-36.0); MEAN PLATELET VOLUME 8.9 fL (7.4-11.4); MONOCYTES # (AUTO) 0.5 10^3/uL (0.0-1.0); MONOCYTES % (AUTO) 8.9 %; NEUTROPHILS # (AUTO) 3.9 10^3/uL (1.5-6.6); NEUTROPHILS % (AUTO) 65.3 %; PLT - PLATELET COUNT 96 10^3/uL (130-450); RED BLOOD COUNT 4.12 10^6/uL (4.70-6.10); RED CELL DISTRIBUTION WIDTH 16.8 % (12.0-15.0); WHITE BLOOD COUNT 5.9 x10^3/uL (4.8-10.8)
[2017-12-02 08:15] LABS: ALBUMIN 3.2 g/dL (3.2-5.5); ALBUMIN/GLOBULIN RATIO 1.3 (1.0-2.2); BILIRUBIN,TOTAL 1.1 mg/dL (0.2-1.0); CALCIUM 8.4 mg/dL (8.5-10.3); CREATININE 1.4 mg/dL (0.6-1.2); MAGNESIUM 2.2 mg/dL (1.7-2.8); TOTAL PROTEIN 5.7 g/dL (6.7-8.2)
[2017-12-02] MEDS: POLYETHYLENE GLYCOL 3350 17 GM PACKET PO SCH (09:29)
[2017-12-02] MEDS: CARVEDILOL 3.125 MG TABLET PO SCH (09:30)
[2017-12-02] MEDS: FAMOTIDINE 20 MG TABLET PO SCH (09:32)
[2017-12-02] MEDS: NORTRIPTYLINE 10 MG CAPSULE PO SCH (09:33)
[2017-12-02] MEDS: MAGNESIUM OXIDE 400 MG TABLET PO SCH (09:33)
[2017-12-02] MEDS: AZITHROMYCIN 250 MG TABLET PO SCH (09:33)
[2017-12-02] MEDS: SERTRALINE 50 MG TABLET PO SCH (09:33)
[2017-12-02] MEDS: DABIGATRAN 75 MG CAPSULE PO SCH (09:33)
[2017-12-02] MEDS: FINASTERIDE 5 MG TABLET PO SCH (09:33)
[2017-12-02] MEDS: TAMSULOSIN 0.4 MG CAPSULE PO SCH (09:33)
[2017-12-02] MEDS: SPIRONOLACTONE 25 MG TABLET PO SCH (09:34)
[2017-12-02] MEDS: LEVALBUTEROL 1.25 MG/3 ML NEB INH SCH (09:55)
[2017-12-02] MEDS ORDERED: POTASSIUM CHLORIDE 20 MEQ TABLET PO SCH (11:00)
[2017-12-02] MEDS: OXYBUTYNIN 5MG TABLET PO SCH (11:23)
[2017-12-02] MEDS ORDERED: AMOX/CLAV 875 MG/125 MG TABLET PO SCH (14:00)
--- NOTE | 2017-12-02 14:09 | Discharge Plan ---
Discharge Plan Disposition: Home Health Service Condition: Poor Prescriptions: Amox/Clav 875/125 [Augmentin 875/125] 1 tab PO BID #10 tablet Spironolactone [Aldactone] 25 mg PO DAILY #7 tablet Diet: Cardiac Activity Restrictions: Activity as Tolerated Shower Restrictions: No (caregiver closely monitor, fall precaution) Weight Bearing: Full Weight Instruction Topics: Spironolactone tablets, Amoxicillin Clavulanic Acid tablets , Pneumonia, Heart Failure Additional Instructions or Follow Up instructions: May see PCP in 2-3 days, and have CMP lab work, have home health RN, and PT. Should symptoms return or worsen, may present ER or call 911 for help. [facility]-Up Care: [facility], [facility], [facility] - RN, Home Health - PT No Smoking: If you smoke, Please STOP! Call for help. Follow-up with: Arnaldo Campos MD [Primary Care Provider] -
--- NOTE | 2017-12-02 14:33 | DISCHARGE SUMMARY ---
"Discharge Summary Discharge Date: 12/02/17 Discharging Provider: CHENEY Primary Care Provider: Dr. Ross Condition at Discharge: Poor Discharge Disposition: Home Health Service Discharge Facility Name: home - DIAGNOSES Admission Diagnoses: (1) CHF (congestive heart failure), NYHA class IV (2) Cerebrovascular accident (CVA) (3) Hypertension (4) Aortic stenosis, moderate (5) CKD Discharge Diagnoses with Status of Each Condition: (1) Right lower lobe pneumonia room air with 98% Sats. No cough, fever, chill. continue to finish the antibiotics course (2) CHF (congestive heart failure), NYHA class IV BNP is down to baseline, ECHO reveals EF55-60%. leg edema is great improved. managed by palliative care and PCP, add ALdactone (3) Cerebrovascular accident (CVA) stable, continue home regime, managed by PCP (4) Hypertension stable, add aldactone, continue to be managed by PCP (5) Aortic stenosis, moderate stable (6) CKD stable as baseline - HPI History of Present Illness: refer from Dr. Olivares's HPI on 11/27/17 to pt - CONSULTS | PROCEDURES Consultations: palliative care - HOSPITAL COURSE Hospital Course: pt was admitted for exacerbation of CHF. pt was treated with Lasix. then pt developed possible pneumonia, and treated with antibiotics. Pt was consulted with palliative care. Palliative care will continue to manage pt and possible transfer pt to hospice care as well. - ALLERGIES Allergies/Adverse Reactions: Allergies Allergy/AdvReac Type Severity Reaction Status Date / Time [id number] Reductase AdvReac Dizziness Verified 08/17/17 10:14 Inhibitor - MEDICATIONS Home Medications: Ambulatory Orders Medication Instructions Recorded Confirmed Potassium Chloride [K-Dur] 20 meq PO BIDWM 01/14/15 11/27/17 Sertraline [Zoloft] 50 mg PO DAILY 01/14/15 11/28/17 Finasteride 5 mg PO DAILY 06/25/15 11/28/17 Oxybutynin [Ditropan] 5 mg PO BID 12/26/15 11/28/17 Tamsulosin HCl [Flomax] 0.4 mg PO DAILY 12/26/15 11/28/17 Nortriptyline [Pamelor] 10 mg PO DAILY 08/17/17 11/28/17 Polyethylene Glycol 3350 [Miralax] 17 gm PO DAILY 08/17/17 11/28/17 Dabigatran Etexilate Mesylate 150 mg PO BID 11/27/17 11/28/17 [Pradaxa] Carvedilol 6.25 mg PO BID 11/28/17 11/28/17 Furosemide 40 mg PO DAILY 11/28/17 11/28/17 Lisinopril 40 mg PO DAILY 11/28/17 11/28/17 Amox/Clav 875/125 [Augmentin 1 tab PO BID #10 tablet 12/02/17 875/125] Spironolactone [Aldactone] 25 mg PO DAILY #7 tablet 12/02/17 - PHYSICAL EXAM AT DISCHARGE General Appearance: positive: No acute distress, Alert. negative: Lethargic Eyes Bilateral: positive: Normal inspection, PERRL, No lid inflammation, Conjunctivae nml ENT: positive: ENT inspection nml, Pharynx nml, No signs of dehydration. negative: Purulent nasal drainage, Pharyngeal erythema, Oral lesions Neck: positive: Nml inspection, Thyroid nml, No JVD, Trachea midline. negative : Thyromegaly, Lymphadenopathy (R), Lymphadenopathy (L), Stiff neck, Carotid bruit, Swelling/bruising, Tracheal deviation Respiratory: positive: Chest non-tender, No respiratory distress, Breath sounds nml. negative: Wheezes, Rales, Rhonchi Cardiovascular: positive: Regular rate & rhythm, Systolic murmur. negative: Irregularly irregular, Extrasystoles, Tachycardia, Bradycardia, Diastolic murmur Peripheral Pulses: positive: 2+ Abdomen: positive: Non-tender, No organomegaly, Nml bowel sounds, No distention. negative: Tenderness, Guarding, Rebound Back: positive: Nml inspection. negative: CVA tenderness (R), CVA tenderness (L ) Skin: positive: Color nml, No rash, Warm, Dry. negative: Cyanosis, Diaphoresis , Pallor Extremities: positive: Non-tender, Full ROM, Nml appearance. negative: Calf tenderness, Joint swelling, Jason's sign/cords Neurologic/Psychiatric: positive: Sensation nml, Weakness. negative: Sensory loss, Facial droop, Slurred/abnml speech, Depressed mood/affect - LABS Result Diagrams: 12/02/17 07:40 12/02/17 07:40 - FOLLOW UP Follow Up: May see PCP in 2-3 days, and have CMP lab work, have home health RN, and PT, and continue to have palliative care to manage. - TIME SPENT Time Spent in Discharge (Minutes): 50"
[2017-12-02 16:24] VITALS: BP 150/81
== END 2017-12-02 15:25 | disposition home health service (06) | DRG 291 ==
LOC: ED 19:04 → MS3 21:15
PROVIDERS: ADMIT Internal Medicine; ATTEND Nurse Practitioner Gerontology
DX: I11.0 Hypertensive heart disease with heart failure (principal); I50.9 Heart failure, unspecified; I13.0 Hypertensive heart and chronic kidney disease with heart failure and stage 1 through stage 4 chronic kidney disease, or unspecified chronic kidney disease; J18.1 Lobar pneumonia, unspecified organism; I50.43 Acute on chronic combined systolic (congestive) and diastolic (congestive) heart failure; I69.954 Hemiplegia and hemiparesis following unspecified cerebrovascular disease affecting left non-dominant side; N18.9 Chronic kidney disease, unspecified; I35.0 Nonrheumatic aortic (valve) stenosis; I48.2 Chronic atrial fibrillation; G47.30 Sleep apnea, unspecified; I69.922 Dysarthria following unspecified cerebrovascular disease; I69.919 Unspecified symptoms and signs involving cognitive functions following unspecified cerebrovascular disease; I25.10 Atherosclerotic heart disease of native coronary artery without angina pectoris; Z66 Do not resuscitate; Z51.5 Encounter for palliative care; Z79.891 Long term (current) use of opiate analgesic; Z79.899 Other long term (current) drug therapy; Z86.73 Personal history of transient ischemic attack (TIA), and cerebral infarction without residual deficits; Z87.11 Personal history of peptic ulcer disease; Z95.0 Presence of cardiac pacemaker; Z95.5 Presence of coronary angioplasty implant and graft; Z87.891 Personal history of nicotine dependence
CPT/HCPCS: 36415; 51702; 71045; 80048; 80053; 83690; 83735; 83880; 84484; 85025; 85610; 85730; 93005; 93306; 94640; 96374; 99223; 99283; 99284; 99285

== ENCOUNTER 2017-12-10 09:50 | Outpatient (CLI) | payer MEDICARE ==
--- NOTE | 2017-12-10 17:30 | CONSULTATION NOTE ---
Palliative Care Follow Up - Referral Referring Provider: Dr. Arnaldo Campos Time of Visit: [id number] Referral setting: Home (It is taxing considerable effort for the patient to leave the home secondary lower extremity weakness.) Referral Reason: Acute on Chronic Heart Failure/CAP - Information Sources Records reviewed: RN notes reviewed, Previous records reviewed History/Review of Systems obtained from: Patient, Family (Daughter Shanita at visit) Exam limitations: Clinical condition (patient with mild short term memory issues ) - History of Present Illness Update Brief HPI Update: This is a mark 87-year-old gentleman who was discharged from [facility] on 12-02-17 the diagnosis of acute on chronic diastolic heart failure, NYHA class IV. He does have aortic moderate stenosis, and was diagnosed with right lower lobe pneumonia. He does have functional decline, impacted by his residual from a stroke and 10/2015. He is cared for at home by his mark daughter Shanita, his quality of life has been deteriorating, with increased dependence, increased depressive symptoms, and increased difficulty managing his advanced heart failure. He currently is being supported by [facility] home health nursing, had seen patient on the inpatient side for palliative care consult and clarification of goals. Focus to be on quality of life, avoiding hospitalizations, and end-of-life transition to hospice. Social History - Living Situation Living arrangement: At home Living Situation: With family (Lives in separate apartment/small health off of main house. Does have TB monitors to be able to communicate with family. Daughter Shanita providing most of the caregiving at this point in time. Have competed 20 hours/month respite program [facility]/did qualilfy unclear when will start) Medications/Allergies - Medications Home Medications: Ambulatory Orders Medication Instructions Recorded Confirmed Potassium Chloride [K-Dur] 20 meq PO BIDWM 01/14/15 12/11/17 Sertraline [Zoloft] 50 mg PO DAILY 01/14/15 12/11/17 Finasteride 5 mg PO DAILY 06/25/15 12/11/17 Oxybutynin [Ditropan] 5 mg PO BID 12/26/15 12/11/17 Tamsulosin HCl [Flomax] 0.4 mg PO DAILY 12/26/15 12/11/17 Nortriptyline [Pamelor] 10 mg PO DAILY 08/17/17 12/11/17 Polyethylene Glycol 3350 [Miralax] 17 gm PO DAILY 08/17/17 12/11/17 Dabigatran Etexilate Mesylate 150 mg PO BID 11/27/17 12/11/17 [Pradaxa] Carvedilol 6.25 mg PO BID 11/28/17 12/11/17 Furosemide 40 mg PO DAILY 11/28/17 12/11/17 Lisinopril 40 mg PO DAILY 11/28/17 12/11/17 Spironolactone [Aldactone] 25 mg PO DAILY #7 tablet 12/02/17 12/11/17 - Allergies Allergies/Adverse Reactions: Allergies Allergy/AdvReac Type Severity Reaction Status Date / Time [id number] Reductase AdvReac Dizziness Verified 08/17/17 10:14 Inhibitor Review of Systems - Constitutional Constitutional: reports: Fatigue, Weakness, Weight stable. denies: Fever, Chills - Eyes Eyes: reports: Vision loss - Ears, Nose & Throat Ears, Nose & Throat: reports: Hearing loss, Postnasal drainage, Dry mouth - Cardiovascular Cardiovascular: reports: Irregular heart rate, Edema (improved), Decr. exercise tolerance. denies: Chest pain - Respiratory Respiratory: reports: SOB with exertion, Other (using CPAP at night). denies: Cough - Gastrointestinal Gastrointestinal: reports: Diarrhea (resolving attributes to antibiotics; usually has hx of constipation), Good appetite. denies: Nausea, Reflux/ heartburn - Genitourinary Genitourinary: reports: Frequency, Incontinence (hx of dribbling/now improved with oxybutin) - Musculoskeletal Musculoskeletal: reports: Muscle aches, Stiffness, Limited range of motion, Muscle weakness, Assistive devices (has wheelchair using pivot transfers to get to BR/rolling walker only able to tolerate few steps) - Integumentary Integumentary: reports: Dryness, Other (red tail bone reports improved) - Neurological Neurological: reports: General weakness, Memory problems - Psychiatric Psychiatric: reports: Depression, Anxiety - Hematologic/Lymphatic Hematologic/Lymphatic: reports: Recurrent infections (dx with CAP) - All Other Systems All Other Systems: reports: Reviewed and negative Physical Exam - Vital Signs Temperature: 97.0 C Pulse Rate: 56 Respiratory Rate: 18 O2 Saturation: 98 (ra @ rest) Blood Pressure: 178/98 - Physical Exam General Appearance: positive: No acute distress, Alert Eyes Bilateral: positive: Normal inspection ENT: positive: Dry mucous membranes (no signs or symptoms of candidiasis; senior living hx have tried variety of products) Neck: positive: No JVD, Trachea midline Cardiovascular: positive: Irregularly irregular Respiratory: positive: Breath sounds nml, Diminished in bases (right greater than left). negative: Wheezes, Rales, Rhonchi Abdomen: positive: Non-tender, Soft, Nml bowel sounds (hyperactive), Obese Skin: positive: Pallor, Pressure wound (stage I thinned coccyx; no open areas) Extremities: positive: Pedal edema (1+ up to mid calf;) Neurologic/Psychiatric: positive: Oriented x3, Weakness, Depressed mood/affect Palliative Care - POLST Patient has POLST: Yes POLST Status: DNR, Comfort Measures Pain: No pain Tiredness/Fatigue: Severe (7-10) Drowsiness/Sedation: Mild (1-3) Nausea: None Depression: Moderate (4-6) Anxiety: Mild (1-3) Dyspnea: Moderate (4-6) Anorexia: None Sleep: Variable sleep pattern Performance Status: Patient able to pivot transfer with contact assist. Concern had been about increasing weakness and need for possible lift assist. At this point in time is managing, would not meet criteria, but did review would be covered by his insurance if he were dependent on that for mobility. They are using wheelchair to get around the house, he can walk a few steps but it is with great difficulty and poor activity tolerance reports lower extremity weakness when tries. Is dependent on daughter for bathing, they are looking forward to trying the home health aide, as well as a respite hours so daughter can get extended period of time as far as breaks - Palliative Care Discussion: Patient expressing feelings of grief and loss, mostly related to loss of independence. The need for more help. He is having more trouble concentrating , finding things that bring him andreas, family is very attentive, patient trying to find a balance of isolation and engagement. Is feeling much more vulnerable and frail, focused to continue on quality of life. POLST in place, will continue to weigh benefits and burdens of interventions/services/resources as they arise. Results - Lab Results Lab results reviewed: Yes Lab and Imaging Results: RN unable to get specimen yesterday; will wait until next week for labs given multiple sticks and still healing from hospitalization. Impression and Recommendations - Palliative Care Impression: This is an 87-year-old gentleman with recent hospitalization for acute on chronic diastolic heart failure, community-acquired pneumonia, and ongoing diminishing functional status. Patient does present with increased hypertension today, was quite hypertensive in his acute hospitalization, has had added Spironolactone 25 mg. Patient also presents with depressive symptoms , normalized grief and loss reaction, [facility] Palliative care to follow for ongoing symptom management and support and transitioned when patient appropriate for hospice Recommendations/Counseling Done: 1. Acute on chronic heart failure. Patient without crackles, his lower extremity edema is much improved, they are doing daily weights, has new added diuretic Spironolactone. Oxygen saturations are good, appears to be doing well today. 2. Hypertension. Patient was quite hypertensive to his hospitalization, does present with blood pressure 178/98 today, daughter will take blood pressure next couple days and call, will increase his lisinopril if remains elevated. Plan to have BMP and CBC drawn next week. Newly on spironolactone 25 mg, will continue, RX called to [place]. Was hypokalemic on discharge, but will get labs next week to follow up on K dosing. 3. Generalized weakness. Patient currently able to pivot with only 1 person assist to wheelchair to manage toileting and transfers within apartment. Discussed criteria for lifts, patient would need to be dependent and needed to be able to transfer. Patient does have fluctuating status, will continue to monitor. Patient does tire and has poor activity tolerance, physical therapy put on hold for now. 4. Depression. Patient expressing feelings of grief and loss. Counseling regarding normalizing these current feelings, did offer other services as far as palliative care rn social work and delivery aide, visiting volunteer. Patient does like his "quiet time" as well, but will consider in the future. 5. Caregiver fatigue. Patient did qualify for 20 hours per month to new senior program. Is unclear when this is going to be initiated, did encourage to take advantage of the home health aide from home health care at this point in time. 6. Advanced care planning. LEMUEL in place, currently has support from home health team, goal is to focus on quality of life and avoid further hospitalization. Will collaborate with PCP for ongoing needs as patient difficulty getting out for medical appointments. Time Spent: 60 minutes with greater than 50% of this done in counseling regarding management of CHF, goals of care, and anticipatory guidance.
== END 2017-12-10 09:51 | disposition home or self-care (01) ==
LOC: PC 09:50
PROVIDERS: ATTEND Nurse Practitioner Adult Health
DX: Z51.5 Encounter for palliative care (principal); I11.0 Hypertensive heart disease with heart failure; I50.9 Heart failure, unspecified; R53.1 Weakness; F32.9 Major depressive disorder, single episode, unspecified; I69.359 Hemiplegia and hemiparesis following cerebral infarction affecting unspecified side; L89.151 Pressure ulcer of sacral region, stage 1; R60.0 Localized edema; I35.0 Nonrheumatic aortic (valve) stenosis; Z66 Do not resuscitate
CPT/HCPCS: 99350

== ENCOUNTER 2017-12-16 08:00 | Outpatient (CLI) | payer MEDICARE ==
[2017-12-16 11:07] LABS: BASOPHILS % (AUTO) 0.7 %; EOSINOPHILS # (AUTO) 0.4 10^3/uL (0.0-0.7); EOSINOPHILS % (AUTO) 6.4 %; HGB - HEMOGLOBIN 14.3 g/dL (14.0-18.0); LYMPHOCYTES # (AUTO) 0.8 10^3/uL (1.5-3.5); LYMPHOCYTES % (AUTO) 14.2 %; MEAN CORPUSCULAR HEMOGLOBIN 32.2 pg (27.0-31.0); MEAN CORPUSCULAR HGB CONC 34.1 g/dL (32.0-36.0); MEAN CORPUSCULAR VOLUME 94.7 fL (80.0-94.0); MEAN PLATELET VOLUME 9.2 fL (7.4-11.4); MONOCYTES # (AUTO) 0.3 10^3/uL (0.0-1.0); NEUTROPHILS # (AUTO) 4.3 10^3/uL (1.5-6.6); NEUTROPHILS % (AUTO) 73.7 %; PLT - PLATELET COUNT 95 10^3/uL (130-450); RED BLOOD COUNT 4.44 10^6/uL (4.70-6.10); RED CELL DISTRIBUTION WIDTH 16.3 % (12.0-15.0); WHITE BLOOD COUNT 5.9 x10^3/uL (4.8-10.8)
[2017-12-16 11:12] LABS: CALCIUM 9.2 mg/dL (8.5-10.3); CREATININE 1.4 mg/dL (0.6-1.2)
== END 2017-12-16 08:01 ==
LOC: LAB.R 08:00
PROVIDERS: ATTEND Nurse Practitioner Adult Health
DX: Z79.899 Other long term (current) drug therapy (principal)
CPT/HCPCS: 80048; 85025